=== PATIENT | female | born 1950 | race Caucasian/White ===

== ENCOUNTER → 2018-08-24 11:24 | Outpatient (CLI) | payer MEDICARE, OTHER, SELFPAY ==
--- NOTE | 2018-08-24 11:31 | VDLE_ITS ---
Reason For Study: Swelling RIGHT LEFT CFV is compressible, spontaneous, phasic, CFV is compressible, spontaneous, phasic, competent and demonstrates normal competent, and demonstrates normal augmentation. augmentation. FV is compressible, spontaneous, phasic, FV is compressible, spontaneous, phasic, competent and demonstrates normal competent and demonstrates normal augmentation. augmentation. POP V is compressible, spontaneous, phasic, POP V is compressible, spontaneous, phasic, competent and demonstrates normal competent and demonstrates normal augmentation. augmentation. T/P Trunk is compressible. T/P Trunk is compressible. PTV is compressible. PTV is compressible. RT PerV is compressible. LT PerV is compressible. SFJ is competent. GSV is noncompressible throughout s/p EVLA. GSV is INCOMPETENT throughout for greater SSV is noncompressible throughout s/p EVLA. than 0.5 seconds and measures 0.39 x 0.38 INCOMPETENT nephrology social worker 17 cm above medial cm. malleolus. ASV below knee mid calf is INCOMPETENT for greater than 0.5 seconds and measures 0.19 x 0.19 cm. SSV is INCOMPETENT for greater than 0.5 seconds and measures 0.19 x 0.25 cm. Procedure Exam performed in department. Interpretation Summary Deep veins of the lower extremities are bilaterally patent and compressible segmentally. There is no evidence of deep vein thrombosis on either side. Valvular competence appears intact within the proximal deep venous systems bilaterally. The right greater saphenous vein appears patent and compressible segmentally. The right small saphenous vein is patent and compressible. The right greater saphenous vein, small saphenous vein, and an accessory saphenous vein below the knee are incompetent. The left greater saphenous vein and small saphenous vein are occluded, consistent with a prior endothermal venous ablation procedure. An incompetent nephrology social worker vein is noted in the left calf, located 17 centimeters proximal to the left medial malleolus. Ordering Physician: Demario Bose Referring Physician: Zachary Higuera Performed By: Rita Joe RVT and Student
--- OUTSIDE RECORDS SUMMARY | 2018-10-26 22:37 | XMS RPT_ITS ---
:1950 Author Organization OH[facility] Care Team Providers Name Role Phone SIDDHARTH LOVE Attending Unavailable KIMBERLEY MORGAN (GLUE SPREADING MACHINE OPERATOR) Referring Unavailable SIDDHARTH LOVE Referring Unavailable SIDDHARTH LOVE Referring Unavailable SIDDHARTH LOVE Referring Unavailable SIDDHARTH LOVE Referring Unavailable SIDDHARTH LVOE Referring Unavailable SIDDHARTH LOVE Referring Unavailable SIDDHARTH LOVE Referring Unavailable SIDDHARTH LOVE Attending Unavailable SIDDHARTH LOVE Referring Unavailable CHRISSIE LOVEREY Shelby Referring Unavailable IVAN SIDDHARTH A Referring Unavailable Demario Bose Attending Unavailable Demario Bose Referring Unavailable Siddharth Love Primary Care Unavailable PROBLEMS PROBLEMS DATE TYPE CONDITION / CODE ATTENDING STATUS SOURCE 05/25/2018 Active Encounter for NA Active [facility] screening mammogram [place] for malignant Repository neoplasm of breast / Z12.31(ICD-10) 10/09/2017 Active Encounter for NA Active [facility] screening for [place] malignant neoplasm Repository of colon / Z12.11(ICD-10) 10/09/2017 Active Encounter for NA Active [facility] screening for [place] osteoporosis / Repository Z13.820(ICD-10) 10/09/2017 Active Other primary NA Active [facility] ovarian failure / [place] E28.39(ICD-10) Repository 10/09/2017 Active Disorder of bone, NA Active [facility] unspecified / [place] M89.9(ICD-10) Repository 10/09/2017 Active Disorder of NA Active [facility] cartilage, [place] unspecified / Repository M94.9(ICD-10) 10/09/2017 Active Type 2 diabetes NA Active [facility] mellitus without [place] complications / Repository E11.9(ICD-10) 10/09/2017 Active Essential (primary) NA Active [facility] hypertension / [place] I10(ICD-10) Repository 10/09/2017 Active Mixed hyperlipidemia NA Active [facility] / E78.2(ICD-10) [place] Repository 10/09/2017 Active Unknown / SIDDHARTH LOVE Active [facility] UNK(Unknown) A [place] Repository PROCEDURES PROCEDURES No Procedure Records FoundRESULTS RESULTS VENOUS DUPLEX LOWER Observed: 08/27/2018 Status: F Source: [place] 9:32 AM [facility] [place], [place] REPOSITORY [facility] Cardiovascular Services [address] [place] [address] Venous Duplex US - Sukhdeep Extrem 08/24/18 1133 MR#: [id number] Acct: [id number] Name: CATHIE PERERA Rep #: [id number] : 1950 68 From: Demario Bose MD Attending Dr: Demario Bose MD Status: REG CLI Ordering Dr: Demario Bose MD Date: 08/24/18 Location: [facility] Sex: F C Admitted: Reason For Study: Swelling RIGHT LEFT CFV is compressible, spontaneous, phasic, CFV is compressible, spontaneous, phasic, competent and demonstrates normal competent, and demonstrates normal augmentation. augmentation. FV is compressible, spontaneous, phasic, FV is compressible, spontaneous, phasic, competent and demonstrates normal competent and demonstrates normal augmentation. augmentation. POP V is compressible, spontaneous, phasic, POP V is compressible, spontaneous, phasic, competent and demonstrates normal competent and demonstrates normal augmentation. augmentation. T/P Trunk is compressible. T/P Trunk is compressible. PTV is compressible. PTV is compressible. RT PerV is compressible. LT PerV is compressible. SFJ is competent. GSV is noncompressible throughout s/p EVLA. GSV is INCOMPETENT throughout for greater SSV is noncompressible throughout s/p EVLA. than 0.5 seconds and measures 0.39 x 0.38 INCOMPETENT jet wiper 17 cm above medial cm. malleolus. ASV below knee mid calf is INCOMPETENT for greater than 0.5 seconds and measures 0.19 x 0.19 cm. SSV is INCOMPETENT for greater than 0.5 seconds and measures 0.19 x 0.25 cm. Procedure Exam performed in department. Interpretation Summary Deep veins of the lower extremities are bilaterally patent and compressible segmentally. There is no evidence of deep vein thrombosis on either side. Valvular competence appears intact within the proximal deep venous systems bilaterally. The right greater saphenous vein appears patent and compressible segmentally. The right small saphenous vein is patent and compressible. The right greater saphenous vein, small saphenous vein, and an accessory saphenous vein below the knee are incompetent. The left greater saphenous vein and small saphenous vein are occluded, consistent with a prior endothermal venous ablation procedure. An incompetent jet wiper vein is noted in the left calf, located 17 centimeters proximal to the left medial malleolus. Ordering Physician: Demario Bose Referring Physician: Siddharth Love Performed By: Rita Joe RVT and Student 08/27/18930 Date Demario Bose MD CC: Siddharth Love MD; Demario Bose MD Date Dictated: 08/24/18 1133 Date Transcribed: 08/27/18930 Spooling Machine Operator: Signed CNCO Observed: 05/25/2018 Status: COMPLETED Source: [place] 11:29 AM [facility] REPOSITORY HNO ID: [id number] Author: Mammography Coordinator Service: (none) Author Type: Physician Type: Letter Filed: 05/26/2018 11:32 PM Note Text: May 25, 2018 PID: [id number] Cathie Perera [address] [place] [address] Dear Ms. Perera, We are pleased to inform you that the results of your recent breast imaging exam on 05/25/2018 are normal. Your mammogram demonstrates that you have dense breast tissue, which could hide abnormalities. Dense breast tissue, in and of itself, is a relatively common condition. Therefore, this information is not provided to cause undue concern; rather, it is to raise your awareness and promote discussion with your health care provider regarding the presence of dense breast tissue in addition to other risk factors. Early detection of cancer is very important. We also understand recommendations regarding breast cancer screening are controversial. Please discuss with your primary care provider which strategy is best for you and whether a mammogram is right for you. Your imaging studies and report will be kept on file at [facility] as part of your permanent medical record and are available for your continuing care. Thank you for allowing us to help in meeting your health care needs. Sincerely, Dr. Rashid Interpreting Radiologist [facility] (Normal over 40) [facility] SCREENING Observed: 05/25/2018 Status: F Source: [place] 11:00 AM [facility] REPOSITORY * * *Final Report* * * DATE OF EXAM: May 25 2018 11:00AM [facility] 0581 - [facility] SCREENING / PROCEDURE REASON: Encounter for screening for malignant neoplasm of breast * * * * Physician Interpretation * * * * RESULT: #[id number] - [facility] SCREENING BILATERAL DIGITAL SCREENING MAMMOGRAM WITH CAD: 05/25/2018 HISTORY: Screening Mammogram - patient reports NO breast symptoms /priors available for comparison. RESULT: TECHNIQUE: The study was acquired using full field digital technology and interpreted from soft copy. Current study was also evaluated with a Computer Aided Detection (CAD). Comparison is made to exams dated: 03/03/2017 mammogram - [facility], 01/09/2016 mammogram, 07/06/2015 mammogram - [facility], and 06/05/2015 mammogram - [facility]. The tissue of both breasts is heterogeneously dense. This may lower the sensitivity of mammography. There is a biopsy clip in both breasts. No significant masses, calcifications, or other findings are seen in either breast. There has been no significant interval change. IMPRESSION: NEGATIVE There is no mammographic evidence of malignancy. A 1 year screening mammogram is recommended. John enriquez/rekha:05/25/2018 11:29:12 Rolling Down Machine Operator: Raina EVERETT(Shawn)(Kole), [facility] letter sent: Normal over 40 Mammogram BI-RADS: 1 Negative Multiple national specialty organizations have released breast cancer screening guidelines for women at average risk for developing breast cancer - guidelines that are based on both evidence and opinion, yet differ on when to start and how often to screen for breast cancer. With representation from Breast Imaging, Internal Medicine, Women's Health, Family Medicine, and Medical/Surgical Oncology, the [facility] has carefully reviewed the data and reached the following consensus: 1) All women should engage in shared decision-making with their providers to decide when to start and how often to screen; 2) All women should have the opportunity to start screening mammography at age 40; 3) For women ages 45-55, we recommend annual screening mammograms; 4) For women ages 55 and over, we support both the transition from an annual to a biennial interval if this aligns more with patient's values and preferences, or continuation with annual screening; 5) All women should discuss with their providers when to stop screening mammograms. Spooling Machine Operator: Rekha Transcribe Date/Time: May 25 2018 10:33A Dictated by: JOHN RASHID MD This examination was interpreted and the report reviewed and electronically signed by: JOHN RASHID MD on May 25 2018 11:29AM EST [id number] PROGRESS Observed: 05/25/2018 Status: COMPLETED Source: [place] 10:31 AM [facility] [place] REPOSITORY HNO ID: [id number] Author: Dalia Everett Service: (none) Author Type: (none) Type: Progress Notes Filed: 05/25/2018 10:32 AM Note Text: Radiology Service Progress Note PATIENT NAME: Cathie Perera DATE OF SERVICE: May 25, 2018 TIME: 10:32 AM PATIENT IDENTITY VERIFICATION COMPLETED USING TWO (2) METHODS: Patient confirmed name verbally and Date of . PATIENT GENDER DATA: Female. status: : No status: NO. PATIENT RELEVANT IMPLANT DATA REVIEWED: Not Applicable RADIOLOGY DEPARTMENT: [facility] DATA: Not applicable SIGNED BY: Dalia Everett May 25, 2018 10:32 AM PROGRESS Observed: 05/19/2018 Status: COMPLETED Source: [place] 6:11 PM [facility] [place] REPOSITORY HNO ID: [id number] Author: Siddharth Love Service: (none) Author Type: Physician Type: Progress Notes Filed: 05/19/2018 6:11 PM Note Text: Orders filed. PROGRESS Observed: 05/19/2018 Status: COMPLETED Source: [place] 3:06 PM [facility] REPOSITORY HNO ID: [id number] Author: Kimberley Moore Service: (none) Author Type: Electrical Test Engineer Type: Progress Notes Filed: 05/19/2018 6:11 PM Note Text: Please refills PROGRESS Observed: 05/19/2018 Status: COMPLETED Source: [place] 2:10 PM [facility] REPOSITORY HNO ID: [id number] Author: Kimberley Moore Service: (none) Author Type: Electrical Test Engineer Type: Progress Notes Filed: 05/19/2018 6:11 PM Note Text: Please schedule mammogram. Thanks, Kimberley Moore MA PROGRESS Observed: 05/19/2018 Status: COMPLETED Source: [place] 1:38 PM [facility] REPOSITORY HNO ID: [id number] Author: Kimberley Moore Service: (none) Author Type: Electrical Test Engineer Type: Progress Notes Filed: 05/19/2018 6:11 PM Note Text: Patient phones requesting refills as follows: No refill needed Patient has RX on file. Patient was using old RX number for refill. Pending Prescriptions Disp Refills METFORMIN 500 MG TABLET 360 tablet 1 Sig: Take 2 tablets by mouth twice daily with meals. JESUS MANUEL: No Please review and advise. Kimberley Moore ma PROGRESS Observed: 05/19/2018 Status: COMPLETED Source: [place] 10:59 AM [facility] REPOSITORY HNO ID: [id number] Author: Kimberley Moore Service: (none) Author Type: Electrical Test Engineer Type: Progress Notes Filed: 05/19/2018 6:11 PM Note Text: I have attempted to contact this patient by phone to return their call, schedule an appointment, discuss lab results, etc. Left message to call back. Kimberley Moore MA PROGRESS Observed: 05/19/2018 Status: COMPLETED Source: [place] 10:57 AM [facility] REPOSITORY HNO ID: [id number] Author: Kimberley Moore Service: (none) Author Type: Electrical Test Engineer Type: Progress Notes Filed: 05/19/2018 6:11 PM Note Text: [facility] CARE GAP REGISTRY DOCUMENTATION (OUTSIDE TEAMLET) Provider Action/FYI: Diabetic eye exam mammogram PSR Action/FYI: needs diabetic eye Exam mammogram Patient identified by name and date of . Last BP/Labs: Blood Pressure: Last 3 Encounter BP Readings: Date: BP: 04/20/2018 138/80 12/25/2017 132/74 11/27/2017 132/81[#5 (from [facility])[ Lipids: Cholesterol, Total (mg/dL) Date Value 10/09/2017 149 02/26/2017 117 HDL Cholesterol (mg/dL) Date Value 10/09/2017 70 02/26/2017 55 LDL Cholesterol (mg/dL) Date Value 10/09/2017 59 02/26/2017 47 Triglyceride (mg/dL) Date Value 10/09/2017 100 02/26/2017 76 HGB A1C: Lab Results Component Value Date HBA1C 6.6 04/20/2018 HBA1C 6.7 10/09/2017 HBA1C 7.1 02/26/2017 TSH: No results found for: TSH) ? Patient has the following care gap registry disease diagnosis:DM ? Patient has the following open care gaps:DM - Needs dilated eye exam - HM overdue ? Last office visit: 04/20/2018 ? Future office visit: Kimberley Moore MA CNPTOUTREACH Observed: 05/19/2018 Status: COMPLETED Source: [place] 12:00 AM [facility] REPOSITORY Patient Outreach ([facility]AMPWS) CATHIE PERERA ([id number]) 1950 F Date Time Provider Department 05/19/18 KIMBERLEY MOORE) [facility]WS During your visit today, we recorded the following information about you: Kimberley Moore MA 05/19/2018 6:11 PM Signed [facility] CARE GAP REGISTRY DOCUMENTATION (OUTSIDE TEAMLET) Provider Action/FYI: Diabetic eye exam mammogram PSR Action/FYI: needs diabetic eye Exam mammogram Patient identified by name and date of . Last BP/Labs: Blood Pressure: Last 3 Encounter BP Readings: Date: BP: 04/20/2018 138/80 12/25/2017 132/74 11/27/2017 132/81[#5 (from [facility])[ Lipids: Cholesterol, Total (mg/dL) Date Value 10/09/2017 149 02/26/2017 117 HDL Cholesterol (mg/dL) Date Value 10/09/2017 70 02/26/2017 55 LDL Cholesterol (mg/dL) Date Value 10/09/2017 59 02/26/2017 47 Triglyceride (mg/dL) Date Value 10/09/2017 100 02/26/2017 76 HGB A1C: Lab Results Component Value Date HBA1C 6.6 04/20/2018 HBA1C 6.7 10/09/2017 HBA1C 7.1 02/26/2017 TSH: No results found for: TSH) ? Patient has the following care gap registry disease diagnosis:DM ? Patient has the following open care gaps:DM - Needs dilated eye exam - HM overdue ? Last office visit: 04/20/2018 ? Future office visit: CARIN Reynolds MA 05/19/2018 6:11 PM Signed I have attempted to contact this patient by phone to return their call, schedule an appointment, discuss lab results, etc. Left message to call back. CARIN Reynolds MA 05/19/2018 6:11 PM Signed Patient phones requesting refills as follows: No refill needed Patient has RX on file. Patient was using old RX number for refill. Pending Prescriptions Disp Refills METFORMIN 500 MG TABLET 360 tablet 1 Sig: Take 2 tablets by mouth twice daily with meals. JESUS MANUEL: No Please review and advise. carin Reynolds MA 05/19/2018 6:11 PM Signed Please schedule mammogram. Thanks, CARIN Reynolds MA 05/19/2018 6:11 PM Signed Please refills Siddharth Love MD 05/19/2018 6:11 PM Signed Orders filed. Allergies As of Date: 05/19/2018 Noted Allergy Reaction PENICILLINS 10/27/2007 2 - Rash KIWI 06/28/2014 7 - Swelling LISINOPRIL 02/15/2013 3 - Cough SULFA (SULFONAMIDE ANTIBIOTICS) 10/27/2007 2 - Rash Date Reviewed: 04/20/2018 Reviewed by: Siddharth Love - Fully Assessed Reason for Visit: PHMA/Care Gap Outreach [3604] Primary Visit Diagnosis:Encounter for screening for malignant neoplasm of breast [Z12.31] Order(s):[facility] SCREENING [[id number]] Order #: [id number] FUTURE metFORMIN (GLUCOPHAGE) 500 mg tabletTake 2 tablets by mouth twice daily with meals.Disp: 360 tabletRfl: 1 Prescriptions as of 05/19/2018 Sig: LOSARTAN 100 MG TABLET TAKE 1 TABLET BY MOUTH ONCE D* HYDROCHLOROTHIAZIDE 12.5 MG C* TAKE 1 CAPSULE BY MOUTH ONCE * METFORMIN 500 MG TABLET Take 2 tablets by mouth twice* ATORVASTATIN 20 MG TABLET TAKE 1 TABLET BY MOUTH ONCE D* CALCIUM 600 + D ORAL Take 1 tablet by mouth twice * ASPIRIN 81 MG TABLET,DELAYED * Take 1 tablet by mouth once d* AZO BLADDER CONTROL ORAL Take by mouth three times da* BLOOD SUGAR DIAGNOSTIC STRIPS Test blood sugar(s) 1 times d* LANCETS 28 GAUGE Test blood sugar(s) 1 times d* [id number] C-M* Take 1 capsule by mouth three* LUTEIN 20 MG CAPSULE Take 1 capsule by mouth. MULTIVITAMIN TABLET Take 1 tablet by mouth once d* CRANBERRY FRUIT CONCENTRATE 4* Take by mouth. * VITAMIN D3 1,000 UNIT CHEWABL* * COMPOUNDED PRESCRIPTION Sustain eye drops when wearin* * COMPOUNDED PRESCRIPTION maxi vision 2 times daily More... More... Problem List As Of Date 05/19/2018 Noted Resolved Hypertension goal BP (blood pressure) < 140/90 * Priority: A More... Routine general medical examination at a health*INVALID FOR*12/18/2011 More... BMI 28.0-28.9,adult [Z68.28] INVALID FOR* Priority: B More... Mixed hyperlipidemia [E78.2] INVALID FOR* Priority: A More... Abnormal mammogram, unspecified [R92.8] INVALID FOR* Priority: C More... Osteopenia of multiple sites [M85.89] INVALID FOR* Priority: M More... 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 Anxiety and depression [F41.9, F32.9] INVALID FOR* Priority: A Venous stasis dermatitis of both lower extremit*INVALID FOR* Priority: B Well adult exam [Z00.00] INVALID FOR* Priority: E More... Type 2 diabetes mellitus without complication, *INVALID FOR* Priority: A More... 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 Prescriptions ordered this encounter Disp Refills Start End METFORMIN 500 MG TABLET 360 * 1 05/19/2018 Route: ORAL Sig: Take 2 tablets by mouth twice daily with meals. Medications Discontinued During This Encounter metFORMIN (GLUCOPHAGE) 500 mg tablet 360 * 1 05/04/2018 05/19/2018 Route: ORAL Sig: Take 2 tablets by mouth twice daily with meals. Disc: Reason for discontinue is not on file. Encounter Status:Closed by SIDDHARTH LOVE on 05/19/18 HEMOGLOBIN A1C Collected: 04/20/2018 Status: F Source: [place] 2:20 PM [facility] REPOSITORY TYPE CODE TESTS RESULT OUT OF REFERENCE UNITS RANGE LAB HGBA1C 4.3-5.6 % High Hemoglobin A1c 6.6 LAB HBA0 mg/dL Est. Average Glucose 143 Result Comment: eAG: (Estimated average glucose) is a calculated value from HgbA1c and is textile designs sales representative of the average blood glucose level in the last 2-3 month period. Performed By: #### HBA1C #### [facility] [address] [place], [place] [address] PROGRESS Observed: 04/20/2018 Status: COMPLETED Source: [place] 1:55 PM [facility] [place] REPOSITORY HNO ID: [id number] Author: Siddharth Love Service: (none) Author Type: Physician Type: Progress Notes Filed: 04/20/2018 7:52 PM Note Text: I have confirmed and edited as necessary, the PFSH and ROS obtained by others. Examined patient and confirmed daly findings on history and examination and ROS as noted by Martin Singh MS 3 above. Summary of my findings and impressions are as follows: Patient with Hx of DM type 2, HTN, Hyperlipidemia, major depression. Had weaned herself of the prozac about a month ago and has been doing well off of it and would like to continue staying off at this time. Was having some right hip pain [place] with [place] on. Went and saw chiropractor once and symptoms have almost completely resolved. With pain down to a 3 at it's max and 0 most times. No longer getting pain with laying on it or rolling over in bed. HPI, ROS and PE as per MS note and no additions other than what has been documented above. Component Latest Ref Rng AND Units 10/09/2017 Protein, Total 6.3 - 8.0 g/dL 7.5 Albumin 3.9 - 4.9 g/dL 4.2 Calcium 8.5 - 10.2 mg/dL 10.2 Bilirubin, Total 0.2 - 1.3 mg/dL 1.5 (H) Alkaline Phosphatase 32 - 117 U/L 93 AST 13 - 35 U/L 25 Glucose 74 - 99 mg/dL 123 (H) BUN 7 - 21 mg/dL 15 Creatinine 0.58 - 0.96 mg/dL 0.72 Sodium 136 - 144 mmol/L 142 Potassium 3.7 - 5.1 mmol/L 4.3 Chloride 97 - 105 mmol/L 102 CO2 22 - 30 mmol/L 21 (L) Anion Gap 9 - 18 mmol/L 19 (H) ALT 7 - 38 U/L 20 eGFR- >60 eGFR-All Other Races . >60 Cholesterol, Total <200 mg/dL 149 Triglyceride <150 mg/dL 100 HDL Cholesterol >39 mg/dL 70 LDL Cholesterol <100 mg/dL 59 Non HDL Cholesterol <130 mg/dL 79 Fasting Time hrs 16 VLDL Cholesterol <30 mg/dL 20 TC:HDL Ratio <5.10 2.13 LDL:HDL Ratio <2.54 0.84 Hemoglobin A1C 4.3 - 5.6 % 6.7 (H) Estimated Average Glucose mg/dL 146 A/P ASSESSMENT/PLAN: 1. Mixed hyperlipidemia - ICD9: 272.2, ICD10: E78.2 (primary diagnosis) - good control - Continue current medication. - Encouraged following a low fat, low cholesterol diet. - Discussed the benefits of regular aerobic exercise and weight loss. - Encouraged following a low carbohydrate, healthy oil intake diet. - cont baby ASA. 2. Type 2 diabetes mellitus without complication, without long-term current use of insulin (HCC) - ICD9: 250.00, ICD10: E11.9 Controlled. - Continue current medications - Check HgA1C - Daily Asprin therapy recommended - BP goal of <130/80 - LDL goal of <100 - HGB A1C 3. Obstructive sleep apnea syndrome - ICD9: 327.23, ICD10: G47.33 - Patient continues to benefit from CPAP at current settings. No changes. 4. Hypertension goal BP (blood pressure) < 140/90 - ICD9: 401.9, ICD10: I10 - good control - Continue current medication(s) - Recommended regular aerobic exercise. - Recommend home blood pressure monitoring, to bring results in on next visit - Goal of BP <130/80 5. Anxiety and depression - ICD9: 300.00, 311, ICD10: F41.9, F32.9 - Has been doing well off the Prozac and will continue her off of it and monitor 6. Venous insufficiency - ICD9: 459.81, ICD10: I87.2 - cont use of Support socks which she does benefit from. 7. BMI 28.0-28.9,adult - ICD9: V85.24, ICD10: Z68.28 - Cont to work on diet and exercise. F/u in 6 months extensive/medicare wellness. Check CMP, FLP, UA, urine albumin and A1c prior. Siddharth Love MD PROGRESS Observed: 04/20/2018 Status: COMPLETED Source: [place] 1:20 PM [facility] REPOSITORY HNO ID: [id number] Author: Martin Singh MS Service: (none) Author Type: (none) Type: Progress Notes Filed: 04/20/2018 7:52 PM Note Text: Chief Complaint Patient presents with: F/U 6 months HPI Cathie Perera is a 67 year old female who presents here today for 6 month F/U. Was experiencing some R hip pain last week. The pain was worse after poor shoe support and walking at the fair. She presented to Chiropractor for treatment, with almost complete resolution of her pain. Non radiating pain. No OTC tx. D/C'd prozac - she was not able to feel emotions after loss of her friend and therapy dog. Stopped taking it ~1 month ago. She reports that she feels more like herself. She has felt stable since being off of it. She is sleeping well. She continues to use her CPAP, tolerates the machine well. LLE edema continues to be stable. Improves overnight and she will elevate throughout the day as she can. Exercise - twice weekly aerobic classes. Regular walks with her dogs, mows her own lawn, vacuums regularly. Diet - One full meal a day, tends to go out to a restaurant for her meal. Drinks milk and likes fruit. Past medical history, appointments, medications, allergies reviewed. Previous Medical History PAST MEDICAL HISTORY Diagnosis Date - Abnormal mammogram, unspecified 01/12/2008 [place] 01-09: rec stereotactic biopsy for both breasts given the abnormal findings - Anxiety and depression 10/09/2017 - BMI 28.0-28.9,adult 11/24/2007 TSH 5 in 9-98 4 pounds of wt loss as of 12-09 appt - Cystocele, midline 12/25/2009 - Depression Seasonal Affective Disorder - Depressive disorder, not elsewhere classified Seasonal Affective Disorder - Disorder of bone and cartilage 08/22/2008 BMD 04-04: LS spine + 1.1, femur -0.01, normal. Distal radius fracture on L by X ray 08-07 - Diverticulosis of colon (without mention of hemorrhage) - DM type 2 (diabetes mellitus, type 2) ([facility]) 12/24/2013 - Essential hypertension, benign - Hypertension goal BP (blood pressure) < 140/90 ECG 12-06: NSR, NL axis and intervals Creat 0.9 in 12-09 Tolerating HCTZ as of 01-09 despite Sulfa allergy - Mixed hyperlipidemia 12/24/2007 LDL 148, HDL 49, TG 103 in 12-09: no meds for wt loss - Rectocele 12/25/2009 - Sleep apnea 12-05: effic 93%, AHI 20, low sat 88% (CPAP trial showed 7 cm as optimal pressure) Septoplasty and nasal polyp removed 02-[address] 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 Vaca - [facility],PERC,DURING BREAST BX 01/29/08 BILATERAL - REPAIR OF NASAL SEPTUM 2001 for Sleep Apnea - SIGMOIDOSCOPY FLEX; DX 07/07/01 - TOTAL ABDOM HYSTERECTOMY 1990 Endometriosis Family History FAMILY HISTORY Problem Relation Age of Onset - Thyroid Mother - Cancer Father DM, Prostate Cancer - Coronary Artery Disease Mother - Lipids Mother - Diabetes Father - Coronary Artery Disease Father - Hypertension Father - other (renal insufficiency [Other]) Father Patient Allergies ALLERGIES Allergen Reactions - Kiwi Swelling - Lisinopril Cough - Penicillins Rash - Sulfa (Sulfonamide * Rash Current Medications Current Outpatient Prescriptions on File Prior to Visit: atorvastatin (LIPITOR) 20 mg tablet TAKE 1 TABLET BY MOUTH ONCE DAILY. calcium carbonate/vitamin D3 (CALCIUM 600 + D ORAL) Take 1 tablet by mouth twice daily. Hydrochlorothiazide 12.5 mg capsule Take 1 capsule by mouth once daily. losartan (COZAAR) 100 mg tablet Take 1 tablet by mouth once daily. aspirin, enteric coated (ADULT ASPIRIN REGIMEN) 81 mg EC tablet Take 1 tablet by mouth once daily. metFORMIN (GLUCOPHAGE) 500 mg tablet Take 2 tablets by mouth twice daily with meals. PUMPKIN SEED EXTRACT/SOY GERM (AZO BLADDER CONTROL ORAL) Take by mouth three times daily. blood sugar diagnostic (FREESTYLE LITE STRIPS) test strip Test blood sugar(s) 1 times daily. Dx: E11.9. Insulin: No lancets (FREESTYLE LANCETS) 28 gauge misc Test blood sugar(s) 1 times daily. Dx: E11.9. Insulin: No Griteakbgle-Edjcwtpnr-Ruo C-Mn (GLUCOSAMINE CHONDROITIN MAXSTR) 500-400 mg cap Take 1 capsule by mouth three times daily. Lutein 20 mg cap Take 1 capsule by mouth. multivitamin tablet Take 1 tablet by mouth once daily. Cranberry Extract (CRANBERRY) 450 mg tab Take by mouth. cholecalciferol(VITAMIN D-3 1,000 UNIT CHEWABLE TAB) COMPOUNDED PRESCRIPTION Sustain eye drops when wearing contacts COMPOUNDED PRESCRIPTION maxi vision 2 times daily FLUoxetine HCl (PROZAC) 40 mg capsule TAKE 1 CAPSULE BY MOUTH ONCE DAILY. No current facility-administered medications on file prior to visit. 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 in [place] for 30 yr Review of Symptoms REVIEW OF SYSTEMS GENERAL: No weight loss, malaise or fevers HEENT: Negative for frequent or significant headaches, No changes in hearing or vision, no nose bleeds or other nasal problems NECK: Negative for lumps, goiter, pain and significant neck swelling RESPIRATORY: Negative for hemoptysis, wheezing, COPD, dyspnea or shortness of breath CARDIOVASCULAR: Negative for chest pain, leg swelling, hypertension, CHF or palpitations GI: No nausea, vomiting, or diarrhea : No history of dysuria, frequency or incontinence SKIN: Negative for lesions, rash, and itching PSYCH: Negative for sleep disturbance, mood disorder and recent psychosocial stressors HEMATOLOGY/LYMPHOLOGY: Negative for prolonged bleeding, bruising easily or swollen nodes ENDOCRINE: Negative for cold or heat intolerance, polyuria, polydipsia and goiter NEURO: No history of headaches, syncope, paralysis, seizures or tremors EXAM: BP 138/80 Pulse 68 Temp 37.6 ?C (99.7 ?F) (Tympanic) Resp 16 Wt 84.4 kg (186 lb) BMI 28.70 kg/m? General Appearance: Well appearing, alert, in no acute distress, well-hydrated, well nourished.. Skin: Skin color, texture, turgor normal, no suspicious rashes or lesions. Head: Normocephalic, no masses, lesions, tenderness or abnormalities. Eyes: Anicteric sclera. Pupils are equally round and reactive to light. Extraocular movements are intact. . Ears: External ears normal, canals clear. Nose/Sinuses: Nares normal, septum midline, mucosa normal, no drainage or sinus tenderness. Oropharynx: Lips, mucosa, and tongue normal, teeth and gums normal, oropharynx normal. Neck: Supple, no adenopathy; thyroid symmetric, normal size, no bruits. Lungs: Lungs clear to auscultation. No wheezing, rhonchi, rales. Heart: RRR without murmur, gallop, or rubs. No ectopy. Abdomen: Normal abdominal exam, Abdomen soft, non-tender. Bowel sounds normal. No masses, organomegaly. Extremities: Some tenderness to palpation over the greater trochanter of the Right leg. LLE with some edema, compression stocking in place. No skin discoloration, clubbing or cyanosis. Good capillary refill. . Musculoskeletal: No pain with flexion, extension of the R hip. Peripheral Pulses: Normal radial pulses bilaterally Neurologic: Gait normal. Reflexes normal and symmetric. Sensation to light touch intact. Linseed Cake Trimmer 2-12 intact Health Maintenance List BP CONTROLLED (<130/80) due on 1968 MAMMOGRAM due on 03/03/2018 DILATED RETINAL EXAM due on 03/18/2018 HBA1C due on 04/11/2018 INFLUENZA(1) due on 04/04/2018 STATIN MED ADHERENCE due on 05/04/2018 DIABETES MED ADHERENCE due on 05/04/2018 URINE ALBUMIN:CREATININE RATIO due on 10/09/2018 LDL CHOLESTEROL due on 10/09/2018 DIABETIC FOOT EXAM due on 10/09/2018 ANNUAL PCP TEAM CHRONIC DISEASE VISIT due on 10/09/2018 PNEUMOVAX AGE 65 AND OVER WITH 5YR LOOKBACK(1) due on 04/27/2019 DTAP,TDAP,TD(2 - Td) due on 11/15/2019 COLORECTAL CANCER SCREENING,SEE MODIFIER due on 12/11/2021 BONE DENSITY Completed ADULT PREVNAR-13 Completed HEPATITIS C SCREENING Completed Data reviewed A/P ASSESSMENT/PLAN: 1. Mixed hyperlipidemia - ICD9: 272.2, ICD10: E78.2 (primary diagnosis) - good control - Continue current medication. - Encouraged following a low fat, low cholesterol diet. - Discussed the benefits of regular aerobic exercise and weight loss. Check in 6 months - COMP METABOLIC PANEL - URINALYSIS WITH MICROSCOPIC - LIPID PANEL, NONFASTING 2. Type 2 diabetes mellitus without complication, without long-term current use of insulin (HCC) - ICD9: 250.00, ICD10: E11.9 Controlled. - Continue current medications - Encouraged regular aerobic exercise and weight loss - Daily Asprin therapy recommended - BP goal of <130/80 - LDL goal of <100 Check - HGB A1C Check in 6 months - ALBUMIN/CREAT RATIO RND UR - COMP METABOLIC PANEL - HGB A1C - URINALYSIS WITH MICROSCOPIC - LIPID PANEL, NONFASTING 3. Obstructive sleep apnea syndrome - ICD9: 327.23, ICD10: G47.33 Continue CPAP, stable 4. Hypertension goal BP (blood pressure) < 140/90 - ICD9: 401.9, ICD10: I10 - good control - Continue current medication(s) - Recommended regular aerobic exercise. - Recommend home blood pressure monitoring, to bring results in on next visit - Goal of BP <130/80 Check in 6 months - COMP METABOLIC PANEL - URINALYSIS WITH MICROSCOPIC - LIPID PANEL, NONFASTING 5. Anxiety and depression - ICD9: 300.00, 311, ICD10: F41.9, F32.9 Doing well off of the Prozac, continue 6. Venous insufficiency - ICD9: 459.81, ICD10: I87.2 Continue to wear compression stocking, stable 7. BMI 28.0-28.9,adult - ICD9: V85.24, ICD10: Z68.28 Encouraged regular exercise and healthy, weight losing diet Martin Singh MS CNOV Observed: 04/20/2018 Status: COMPLETED Source: [place] 1:20 PM [facility] REPOSITORY Office Visit ([facility] CATHIE PERERA ([id number]) 1950 F Date Time Provider Department 04/20/18 1:20 PM SIDDHARTH LOVE During your visit today, we recorded the following information about you: Temperature Pulse Respiration Blood pressure 99.7 degrees 68/minute 16/minute 138/80 Weight 84.4 kg Martin Singh MS 04/20/2018 7:52 PM Signed Chief Complaint Patient presents with: F/U 6 months HPI Cathie Perera is a 67 year old female who presents here today for 6 month F/U. Was experiencing some R hip pain last week. The pain was worse after poor shoe support and walking at the [place]. She presented to Chiropractor for treatment, with almost complete resolution of her pain. Non radiating pain. No OTC tx. D/C'd prozac - she was not able to feel emotions after loss of her friend and therapy dog. Stopped taking it ~1 month ago. She reports that she feels more like herself. She has felt stable since being off of it. She is sleeping well. She continues to use her CPAP, tolerates the machine well. LLE edema continues to be stable. Improves overnight and she will elevate throughout the day as she can. Exercise - twice weekly aerobic classes. Regular walks with her dogs, mows her own lawn, vacuums regularly. Diet - One full meal a day, tends to go out to a restaurant for her meal. Drinks milk and likes fruit. Past medical history, appointments, medications, allergies reviewed. Previous Medical History PAST MEDICAL HISTORY Diagnosis Date - Abnormal mammogram, unspecified 01/12/2008 [place] 01-09: rec stereotactic biopsy for both breasts given the abnormal findings - Anxiety and depression 10/09/2017 - BMI 28.0-28.9,adult 11/24/2007 TSH 5 in 9-98 4 pounds of wt loss as of 12-09 appt - Cystocele, midline 12/25/2009 - Depression Seasonal Affective Disorder - Depressive disorder, not elsewhere classified Seasonal Affective Disorder - Disorder of bone and cartilage 08/22/2008 BMD 04-04: LS spine + 1.1, femur -0.01, normal. Distal radius fracture on L by X ray 08-07 - Diverticulosis of colon (without mention of hemorrhage) - DM type 2 (diabetes mellitus, type 2) ([facility]) 12/24/2013 - Essential hypertension, benign - Hypertension goal BP (blood pressure) < 140/90 ECG 12-06: NSR, NL axis and intervals Creat 0.9 in 12-09 Tolerating HCTZ as of 01-09 despite Sulfa allergy - Mixed hyperlipidemia 12/24/2007 LDL 148, HDL 49, TG 103 in 12-09: no meds for wt loss - Rectocele 12/25/2009 - Sleep apnea 12-05: effic 93%, AHI 20, low sat 88% (CPAP trial showed 7 cm as optimal pressure) Septoplasty and nasal polyp removed 02-[address] 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 Vaca - [facility],PERC,DURING BREAST BX 01/29/08 BILATERAL - REPAIR OF NASAL SEPTUM 2001 for Sleep Apnea - SIGMOIDOSCOPY FLEX; DX 07/07/01 - TOTAL ABDOM HYSTERECTOMY 1990 Endometriosis Family History FAMILY HISTORY Problem Relation Age of Onset - Thyroid Mother - Cancer Father DM, Prostate Cancer - Coronary Artery Disease Mother - Lipids Mother - Diabetes Father - Coronary Artery Disease Father - Hypertension Father - other (renal insufficiency [Other]) Father Patient Allergies ALLERGIES Allergen Reactions - Kiwi Swelling - Lisinopril Cough - Penicillins Rash - Sulfa (Sulfonamide * Rash Current Medications Current Outpatient Prescriptions on File Prior to Visit: atorvastatin (LIPITOR) 20 mg tablet TAKE 1 TABLET BY MOUTH ONCE DAILY. calcium carbonate/vitamin D3 (CALCIUM 600 + D ORAL) Take 1 tablet by mouth twice daily. Hydrochlorothiazide 12.5 mg capsule Take 1 capsule by mouth once daily. losartan (COZAAR) 100 mg tablet Take 1 tablet by mouth once daily. aspirin, enteric coated (ADULT ASPIRIN REGIMEN) 81 mg EC tablet Take 1 tablet by mouth once daily. metFORMIN (GLUCOPHAGE) 500 mg tablet Take 2 tablets by mouth twice daily with meals. PUMPKIN SEED EXTRACT/SOY GERM (AZO BLADDER CONTROL ORAL) Take by mouth three times daily. blood sugar diagnostic (FREESTYLE LITE STRIPS) test strip Test blood sugar(s) 1 times daily. Dx: E11.9. Insulin: No lancets (FREESTYLE LANCETS) 28 gauge misc Test blood sugar(s) 1 times daily. Dx: E11.9. Insulin: No Kxzudlzkqhf-Ldkoiskam-Fsn C-Mn (GLUCOSAMINE CHONDROITIN MAXSTR) 500-400 mg cap Take 1 capsule by mouth three times daily. Lutein 20 mg cap Take 1 capsule by mouth. multivitamin tablet Take 1 tablet by mouth once daily. Cranberry Extract (CRANBERRY) 450 mg tab Take by mouth. cholecalciferol(VITAMIN D-3 1,000 UNIT CHEWABLE TAB) COMPOUNDED PRESCRIPTION Sustain eye drops when wearing contacts COMPOUNDED PRESCRIPTION maxi vision 2 times daily FLUoxetine HCl (PROZAC) 40 mg capsule TAKE 1 CAPSULE BY MOUTH ONCE DAILY. No current facility-administered medications on file prior to visit. 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 in [place] for 30 yr Review of Symptoms REVIEW OF SYSTEMS GENERAL: No weight loss, malaise or fevers HEENT: Negative for frequent or significant headaches, No changes in hearing or vision, no nose bleeds or other nasal problems NECK: Negative for lumps, goiter, pain and significant neck swelling RESPIRATORY: Negative for hemoptysis, wheezing, COPD, dyspnea or shortness of breath CARDIOVASCULAR: Negative for chest pain, leg swelling, hypertension, CHF or palpitations GI: No nausea, vomiting, or diarrhea : No history of dysuria, frequency or incontinence SKIN: Negative for lesions, rash, and itching PSYCH: Negative for sleep disturbance, mood disorder and recent psychosocial stressors HEMATOLOGY/LYMPHOLOGY: Negative for prolonged bleeding, bruising easily or swollen nodes ENDOCRINE: Negative for cold or heat intolerance, polyuria, polydipsia and goiter NEURO: No history of headaches, syncope, paralysis, seizures or tremors EXAM: BP 138/80 Pulse 68 Temp 37.6 ?C (99.7 ?F) (Tympanic) Resp 16 Wt 84.4 kg (186 lb) BMI 28.70 kg/m? General Appearance: Well appearing, alert, in no acute distress, well-hydrated, well nourished.. Skin: Skin color, texture, turgor normal, no suspicious rashes or lesions. Head: Normocephalic, no masses, lesions, tenderness or abnormalities. Eyes: Anicteric sclera. Pupils are equally round and reactive to light. Extraocular movements are intact. . Ears: External ears normal, canals clear. Nose/Sinuses: Nares normal, septum midline, mucosa normal, no drainage or sinus tenderness. Oropharynx: Lips, mucosa, and tongue normal, teeth and gums normal, oropharynx normal. Neck: Supple, no adenopathy; thyroid symmetric, normal size, no bruits. Lungs: Lungs clear to auscultation. No wheezing, rhonchi, rales. Heart: RRR without murmur, gallop, or rubs. No ectopy. Abdomen: Normal abdominal exam, Abdomen soft, non-tender. Bowel sounds normal. No masses, organomegaly. Extremities: Some tenderness to palpation over the greater trochanter of the Right leg. LLE with some edema, compression stocking in place. No skin discoloration, clubbing or cyanosis. Good capillary refill. . Musculoskeletal: No pain with flexion, extension of the R hip. Peripheral Pulses: Normal radial pulses bilaterally Neurologic: Gait normal. Reflexes normal and symmetric. Sensation to light touch intact. Linseed Cake Trimmer 2-12 intact Health Maintenance List BP CONTROLLED (<130/80) due on 1968 MAMMOGRAM due on 03/03/2018 DILATED RETINAL EXAM due on 03/18/2018 HBA1C due on 04/11/2018 INFLUENZA(1) due on 04/04/2018 STATIN MED ADHERENCE due on 05/04/2018 DIABETES MED ADHERENCE due on 05/04/2018 URINE ALBUMIN:CREATININE RATIO due on 10/09/2018 LDL CHOLESTEROL due on 10/09/2018 DIABETIC FOOT EXAM due on 10/09/2018 ANNUAL PCP TEAM CHRONIC DISEASE VISIT due on 10/09/2018 PNEUMOVAX AGE 65 AND OVER WITH 5YR LOOKBACK(1) due on 04/27/2019 DTAP,TDAP,TD(2 - Td) due on 11/15/2019 COLORECTAL CANCER SCREENING,SEE MODIFIER due on 12/11/2021 BONE DENSITY Completed ADULT PREVNAR-13 Completed HEPATITIS C SCREENING Completed Data reviewed A/P ASSESSMENT/PLAN: 1. Mixed hyperlipidemia - ICD9: 272.2, ICD10: E78.2 (primary diagnosis) - good control - Continue current medication. - Encouraged following a low fat, low cholesterol diet. - Discussed the benefits of regular aerobic exercise and weight loss. Check in 6 months - COMP METABOLIC PANEL - URINALYSIS WITH MICROSCOPIC - LIPID PANEL, NONFASTING 2. Type 2 diabetes mellitus without complication, without long-term current use of insulin (HCC) - ICD9: 250.00, ICD10: E11.9 Controlled. - Continue current medications - Encouraged regular aerobic exercise and weight loss - Daily Asprin therapy recommended - BP goal of <130/80 - LDL goal of <100 Check - HGB A1C Check in 6 months - ALBUMIN/CREAT RATIO RND UR - COMP METABOLIC PANEL - HGB A1C - URINALYSIS WITH MICROSCOPIC - LIPID PANEL, NONFASTING 3. Obstructive sleep apnea syndrome - ICD9: 327.23, ICD10: G47.33 Continue CPAP, stable 4. Hypertension goal BP (blood pressure) < 140/90 - ICD9: 401.9, ICD10: I10 - good control - Continue current medication(s) - Recommended regular aerobic exercise. - Recommend home blood pressure monitoring, to bring results in on next visit - Goal of BP <130/80 Check in 6 months - COMP METABOLIC PANEL - URINALYSIS WITH MICROSCOPIC - LIPID PANEL, NONFASTING 5. Anxiety and depression - ICD9: 300.00, 311, ICD10: F41.9, F32.9 Doing well off of the Prozac, continue 6. Venous insufficiency - ICD9: 459.81, ICD10: I87.2 Continue to wear compression stocking, stable 7. BMI 28.0-28.9,adult - ICD9: V85.24, ICD10: Z68.28 Encouraged regular exercise and healthy, weight losing diet Martin Love MD 04/20/2018 7:52 PM Signed I have confirmed and edited as necessary, the PFSH and ROS obtained by others. Examined patient and confirmed daly findings on history and examination and ROS as noted by Martin Singh MS 3 above. Summary of my findings and impressions are as follows: Patient with Hx of DM type 2, HTN, Hyperlipidemia, major depression. Had weaned herself of the prozac about a month ago and has been doing well off of it and would like to continue staying off at this time. Was having some right hip pain after walking at the fair with boots on. Went and saw chiropractor once and symptoms have almost completely resolved. With pain down to a 3 at it's max and 0 most times. No longer getting pain with laying on it or rolling over in bed. HPI, ROS and PE as per MS note and no additions other than what has been documented above. Component Latest Ref Rng AND Units 10/09/2017 Protein, Total 6.3 - 8.0 g/dL 7.5 Albumin 3.9 - 4.9 g/dL 4.2 Calcium 8.5 - 10.2 mg/dL 10.2 Bilirubin, Total 0.2 - 1.3 mg/dL 1.5 (H) Alkaline Phosphatase 32 - 117 U/L 93 AST 13 - 35 U/L 25 Glucose 74 - 99 mg/dL 123 (H) BUN 7 - 21 mg/dL 15 Creatinine 0.58 - 0.96 mg/dL 0.72 Sodium 136 - 144 mmol/L 142 Potassium 3.7 - 5.1 mmol/L 4.3 Chloride 97 - 105 mmol/L 102 CO2 22 - 30 mmol/L 21 (L) Anion Gap 9 - 18 mmol/L 19 (H) ALT 7 - 38 U/L 20 eGFR- >60 eGFR-All Other Races . >60 Cholesterol, Total <200 mg/dL 149 Triglyceride <150 mg/dL 100 HDL Cholesterol >39 mg/dL 70 LDL Cholesterol <100 mg/dL 59 Non HDL Cholesterol <130 mg/dL 79 Fasting Time hrs 16 VLDL Cholesterol <30 mg/dL 20 TC:HDL Ratio <5.10 2.13 LDL:HDL Ratio <2.54 0.84 Hemoglobin A1C 4.3 - 5.6 % 6.7 (H) Estimated Average Glucose mg/dL 146 A/P ASSESSMENT/PLAN: 1. Mixed hyperlipidemia - ICD9: 272.2, ICD10: E78.2 (primary diagnosis) - good control - Continue current medication. - Encouraged following a low fat, low cholesterol diet. - Discussed the benefits of regular aerobic exercise and weight loss. - Encouraged following a low carbohydrate, healthy oil intake diet. - cont baby ASA. 2. Type 2 diabetes mellitus without complication, without long-term current use of insulin (HCC) - ICD9: 250.00, ICD10: E11.9 Controlled. - Continue current medications - Check HgA1C - Daily Asprin therapy recommended - BP goal of <130/80 - LDL goal of <100 - HGB A1C 3. Obstructive sleep apnea syndrome - ICD9: 327.23, ICD10: G47.33 - Patient continues to benefit from CPAP at current settings. No changes. 4. Hypertension goal BP (blood pressure) < 140/90 - ICD9: 401.9, ICD10: I10 - good control - Continue current medication(s) - Recommended regular aerobic exercise. - Recommend home blood pressure monitoring, to bring results in on next visit - Goal of BP <130/80 5. Anxiety and depression - ICD9: 300.00, 311, ICD10: F41.9, F32.9 - Has been doing well off the Prozac and will continue her off of it and monitor 6. Venous insufficiency - ICD9: 459.81, ICD10: I87.2 - cont use of Support socks which she does benefit from. 7. BMI 28.0-28.9,adult - ICD9: V85.24, ICD10: Z68.28 - Cont to work on diet and exercise. F/u in 6 months extensive/medicare wellness. Check CMP, FLP, UA, urine albumin and A1c prior. MD Siddharth Sharma MD 04/20/2018 2:06 PM Signed Please get fasting labs on or after 10/09/2018 prior to next visit. Referring Provider: SIDDHARTH LOVE [[id number]] Allergies As of Date: 04/20/2018 Noted Allergy Reaction PENICILLINS 10/27/2007 2 - Rash KIWI 06/28/2014 7 - Swelling LISINOPRIL 02/15/2013 3 - Cough SULFA (SULFONAMIDE ANTIBIOTICS) 10/27/2007 2 - Rash Date Reviewed: 04/20/2018 Reviewed by: Siddharth Love - Fully Assessed Reason for Visit: F/U 6 months [1177] Primary Visit Diagnosis:Mixed hyperlipidemia [E78.2] Other Visit Diagnoses:Type 2 diabetes mellitus without complication, without long-term current use of insulin (HCC) [E11.9] Obstructive sleep apnea syndrome [G47.33] Hypertension goal BP (blood pressure) < 140/90 [I10] Anxiety and depression [F41.9, F32.9] Venous insufficiency [I87.2] BMI 28.0-28.9,adult [Z68.28] Order(s):HGB A1C [[id number]] Order #: [id number] FUTURE ALBUMIN/CREAT RATIO RND UR [SQUACR] Order #: [id number] FUTURE COMP METABOLIC PANEL [SQCMP] Order #: [id number] FUTURE HGB A1C [RHROB6F] Order #: [id number] FUTURE URINALYSIS WITH MICROSCOPIC [SQUAWMIC] Order #: [id number] FUTURE LIPID PANEL, NONFASTING [SQLIPNF] Order #: [id number] FUTURE Prescriptions as of 04/20/2018 Sig: ATORVASTATIN 20 MG TABLET TAKE 1 TABLET BY MOUTH ONCE D* CALCIUM 600 + D ORAL Take 1 tablet by mouth twice * HYDROCHLOROTHIAZIDE 12.5 MG C* Take 1 capsule by mouth once * LOSARTAN 100 MG TABLET Take 1 tablet by mouth once d* ASPIRIN 81 MG TABLET,DELAYED * Take 1 tablet by mouth once d* METFORMIN 500 MG TABLET Take 2 tablets by mouth twice* AZO BLADDER CONTROL ORAL Take by mouth three times da* BLOOD SUGAR DIAGNOSTIC STRIPS Test blood sugar(s) 1 times d* LANCETS 28 GAUGE Test blood sugar(s) 1 times d* [id number]-QIL C-M* Take 1 capsule by mouth three* LUTEIN 20 MG CAPSULE Take 1 capsule by mouth. MULTIVITAMIN TABLET Take 1 tablet by mouth once d* CRANBERRY FRUIT CONCENTRATE 4* Take by mouth. * VITAMIN D3 1,000 UNIT CHEWABL* * COMPOUNDED PRESCRIPTION Sustain eye drops when wearin* * COMPOUNDED PRESCRIPTION maxi vision 2 times daily More... More... Problem List As Of Date 04/20/2018 Noted Resolved Hypertension goal BP (blood pressure) < 140/90 * Priority: A More... Routine general medical examination at a health*INVALID FOR*12/18/2011 More... BMI 28.0-28.9,adult [Z68.28] INVALID FOR* Priority: B More... Mixed hyperlipidemia [E78.2] INVALID FOR* Priority: A More... Abnormal mammogram, unspecified [R92.8] INVALID FOR* Priority: C More... Osteopenia of multiple sites [M85.89] INVALID FOR* Priority: M More... 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 Anxiety and depression [F41.9, F32.9] INVALID FOR* Priority: A Venous stasis dermatitis of both lower extremit*INVALID FOR* Priority: B Well adult exam [Z00.00] INVALID FOR* Priority: E More... Type 2 diabetes mellitus without complication, *INVALID FOR* Priority: A More... 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 Other instructions from your clinician: Please get fasting labs on or after 10/09/2018 prior to next visit. Medications Discontinued During This Encounter FLUoxetine HCl (PROZAC) 40 mg capsule 90 c* 1 02/14/2018 04/20/2018 Route: ORAL Sig: TAKE 1 CAPSULE BY MOUTH ONCE DAILY. Disc: Discontinued by Patient Disposition: Return in about 6 months (around 10/18/2018) for [facility]medicare wellness 40 min. Follow-up and Disposition History Recorded Encounter Status:Closed by SIDDHARTH LOVE on 04/20/18 PROGRESS Observed: 12/25/2017 Status: COMPLETED Source: [place] 9:01 AM [facility] REPOSITORY O ID: [id number] Author: Bruna Mulligan LPN Service: (none) Author Type: (none) Type: Progress Notes Filed: 12/25/2017 9:10 AM Note Text: Manual Readin/74 Pulse: 80 Reason for blood pressure check - Last BP elevated and Medication adjustment Patient is: Taking medication as prescribed Yes Took medication today Yes If no, date medication last taken N/A Experiencing side effects No BP was borderline at nurse visit 11/27/17. Was started on HCTZ 12.5mg daily. This was also to help with swelling that she notes in her left ankle. Reports that she still has the swelling; non-pitting. Has not been wearing her compression stockings consistently; will do so know. Denies any chest pain, shortness of breath, dizziness, or headaches. No caffeine use. No personal history of tobacco use; no current exposure. Alert and oriented. Pt has been identified by name and birthdate: Yes Allergies reviewed: Yes Latex allergy: no. Medication - prescribed and OTC reviewed and updated: Yes Do you need any prescription refills prior to your next visit: No Health Maintenance: Reviewed and up to date Patient advised to continue with current medications and would be contacted with any further instructions after review by PCP. Bruna Mulligan LPN CNNURSE Observed: 12/25/2017 Status: COMPLETED Source: [place] 9:00 AM [facility] REPOSITORY Nurse Visit (FAMPWS) CATHIE PERERA ([id number]) 1950 F Date Time Provider Department 12/25/17 9:00 [facility] During your visit today, we recorded the following information about you: Pulse Blood pressure 80/minute 132/74 Bruna Mulligan LPN 12/25/2017 9:10 AM Signed Manual Readin/74 Pulse: 80 Reason for blood pressure check - Last BP elevated and Medication adjustment Patient is: Taking medication as prescribed Yes Took medication today Yes If no, date medication last taken N/A Experiencing side effects No BP was borderline at nurse visit 11/27/17. Was started on HCTZ 12.5mg daily. This was also to help with swelling that she notes in her left ankle. Reports that she still has the swelling; non-pitting. Has not been wearing her compression stockings consistently; will do so know. Denies any chest pain, shortness of breath, dizziness, or headaches. No caffeine use. No personal history of tobacco use; no current exposure. Alert and oriented. Pt has been identified by name and birthdate: Yes Allergies reviewed: Yes Latex allergy: no. Medication - prescribed and OTC reviewed and updated: Yes Do you need any prescription refills prior to your next visit: No Health Maintenance: Reviewed and up to date Patient advised to continue with current medications and would be contacted with any further instructions after review by PCP. Bruna Mulligan LPN Referring Provider: SIDDHARTH LOVE [[id number]] Allergies As of Date: 12/25/2017 Noted Allergy Reaction KIWI 06/28/2014 7 - Swelling LISINOPRIL 02/15/2013 3 - Cough PENICILLINS 10/27/2007 2 - Rash SULFA (SULFONAMIDE ANTIBIOTICS) 10/27/2007 2 - Rash Date Reviewed: 10/09/2017 Reviewed by: Siddharth Love - Fully Assessed Reason for Visit: Blood Pressure Check [195] Primary Visit Diagnosis:Hypertension goal BP (blood pressure) < 140/90 [I10] Prescriptions as of 12/25/2017 Sig: CALCIUM 600 + D ORAL Take 1 tablet by mouth twice * HYDROCHLOROTHIAZIDE 12.5 MG C* Take 1 capsule by mouth once * LOSARTAN 100 MG TABLET Take 1 tablet by mouth once d* ASPIRIN 81 MG TABLET,DELAYED * Take 1 tablet by mouth once d* FLUOXETINE 40 MG CAPSULE Take 1 capsule by mouth once * ATORVASTATIN 20 MG TABLET TAKE 1 TABLET BY MOUTH ONCE D* METFORMIN 500 MG TABLET Take 2 tablets by mouth twice* AZO BLADDER CONTROL ORAL Take by mouth three times da* BLOOD SUGAR DIAGNOSTIC STRIPS Test blood sugar(s) 1 times d* LANCETS 28 GAUGE Test blood sugar(s) 1 times d* [id number] C-M* Take 1 capsule by mouth three* LUTEIN 20 MG CAPSULE Take 1 capsule by mouth. MULTIVITAMIN TABLET Take 1 tablet by mouth once d* CRANBERRY FRUIT CONCENTRATE 4* Take by mouth. * VITAMIN D3 1,000 UNIT CHEWABL* * COMPOUNDED PRESCRIPTION Sustain eye drops when wearin* * COMPOUNDED PRESCRIPTION maxi vision 2 times daily More... More... Problem List As Of Date 12/25/2017 Noted Resolved Hypertension goal BP (blood pressure) < 140/90 * Priority: A More... Routine general medical examination at a health*INVALID FOR*12/18/2011 More... BMI 28.0-28.9,adult [Z68.28] INVALID FOR* Priority: B More... Mixed hyperlipidemia [E78.2] INVALID FOR* Priority: A More... Abnormal mammogram, unspecified [R92.8] INVALID FOR* Priority: C More... Osteopenia of multiple sites [M85.89] INVALID FOR* Priority: M More... 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 Anxiety and depression [F41.9, F32.9] INVALID FOR* Priority: A Venous stasis dermatitis of both lower extremit*INVALID FOR* Priority: B Well adult exam [Z00.00] INVALID FOR* Priority: E More... Type 2 diabetes mellitus without complication, *INVALID FOR* Priority: A Obstructive sleep apnea syndrome [G47.33] INVALID FOR* Priority: B More... Primary ovarian failure [E28.39] INVALID FOR* Screening for osteoporosis [Z13.820] INVALID FOR* Screening for colon cancer [Z12.11] INVALID FOR* Encounter Status:Closed by BRUNA MULLIGAN LPN on 12/25/17 PROGRESS Observed: 11/27/2017 Status: COMPLETED Source: [place] 10:15 AM [facility] REPOSITORY O ID: [id number] Author: Bruna Mulligan LPN Service: (none) Author Type: (none) Type: Progress Notes Filed: 11/27/2017 10:32 AM Note Text: Manual Readin/86 Pulse: 70 BP Chi average: 135/82 P: 68 Reason for blood pressure check - Last BP elevated and Medication adjustment Patient is: Taking medication as prescribed Yes Took medication today Yes If no, date medication last taken N/A Experiencing side effects No BP continued to be elevated 10/30/17. Losartan was increased to 100mg daily. Tolerating medication change well. Recent significant stressors at home. Also notes non-pitting edema in left ankle. Denies any chest pain, shortness of breath, dizziness, or headaches. No caffeine use. No personal history of tobacco use; no current exposure. Alert and oriented. Pt has been identified by name and birthdate: Yes Allergies reviewed: Yes Latex allergy: no. Medication - prescribed and OTC reviewed and updated: Yes Do you need any prescription refills prior to your next visit: No Health Maintenance: Reviewed and up to date Patient advised to continue with current medications and would be contacted with any further instructions after review by PCP. Bruna Mulligan LPN CNNURSE Observed: 11/27/2017 Status: COMPLETED Source: [place] 10:15 AM [facility] REPOSITORY Nurse Visit (FAMPWS) CATHIE PERERA ([id number]) 1950 F Date Time Provider Department 11/27/17 10:15 AM [facility] During your visit today, we recorded the following information about you: Pulse Blood pressure 68/minute 135/82 Bruna Mulligan LPN 11/27/2017 10:32 AM Signed Manual Readin/86 Pulse: 70 BP Chi average: 135/82 P: 68 Reason for blood pressure check - Last BP elevated and Medication adjustment Patient is: Taking medication as prescribed Yes Took medication today Yes If no, date medication last taken N/A Experiencing side effects No BP continued to be elevated 10/30/17. Losartan was increased to 100mg daily. Tolerating medication change well. Recent significant stressors at home. Also notes non-pitting edema in left ankle. Denies any chest pain, shortness of breath, dizziness, or headaches. No caffeine use. No personal history of tobacco use; no current exposure. Alert and oriented. Pt has been identified by name and birthdate: Yes Allergies reviewed: Yes Latex allergy: no. Medication - prescribed and OTC reviewed and updated: Yes Do you need any prescription refills prior to your next visit: No Health Maintenance: Reviewed and up to date Patient advised to continue with current medications and would be contacted with any further instructions after review by PCP. Bruna Mulligan LPN Referring Provider: SIDDHARTH LOVE [[id number]] Allergies As of Date: 11/27/2017 Noted Allergy Reaction KIWI 06/28/2014 7 - Swelling LISINOPRIL 02/15/2013 3 - Cough PENICILLINS 10/27/2007 2 - Rash SULFA (SULFONAMIDE ANTIBIOTICS) 10/27/2007 2 - Rash Date Reviewed: 10/09/2017 Reviewed by: Siddharth Love - Fully Assessed Reason for Visit: Blood Pressure Check [195] Primary Visit Diagnosis:Hypertension goal BP (blood pressure) < 140/90 [I10] Prescriptions as of 11/27/2017 Sig: CALCIUM 600 + D ORAL Take 1 tablet by mouth twice * LOSARTAN 100 MG TABLET Take 1 tablet by mouth once d* ASPIRIN 81 MG TABLET,DELAYED * Take 1 tablet by mouth once d* FLUOXETINE 40 MG CAPSULE Take 1 capsule by mouth once * ATORVASTATIN 20 MG TABLET TAKE 1 TABLET BY MOUTH ONCE D* METFORMIN 500 MG TABLET Take 2 tablets by mouth twice* AZO BLADDER CONTROL ORAL Take by mouth three times da* BLOOD SUGAR DIAGNOSTIC STRIPS Test blood sugar(s) 1 times d* LANCETS 28 GAUGE Test blood sugar(s) 1 times d* [id number] C-M* Take 1 capsule by mouth three* LUTEIN 20 MG CAPSULE Take 1 capsule by mouth. MULTIVITAMIN TABLET Take 1 tablet by mouth once d* CRANBERRY FRUIT CONCENTRATE 4* Take by mouth. * VITAMIN D3 1,000 UNIT CHEWABL* * COMPOUNDED PRESCRIPTION Sustain eye drops when wearin* * COMPOUNDED PRESCRIPTION maxi vision 2 times daily More... More... Problem List As Of Date 11/27/2017 Noted Resolved Hypertension goal BP (blood pressure) < 140/90 * Priority: A More... Routine general medical examination at a health*INVALID FOR*12/18/2011 More... BMI 28.0-28.9,adult [Z68.28] INVALID FOR* Priority: B More... Mixed hyperlipidemia [E78.2] INVALID FOR* Priority: A More... Abnormal mammogram, unspecified [R92.8] INVALID FOR* Priority: C More... Osteopenia of multiple sites [M85.89] INVALID FOR* Priority: M More... 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 Anxiety and depression [F41.9, F32.9] INVALID FOR* Priority: A Venous stasis dermatitis of both lower extremit*INVALID FOR* Priority: B Well adult exam [Z00.00] INVALID FOR* Priority: E More... Type 2 diabetes mellitus without complication, *INVALID FOR* Priority: A Obstructive sleep apnea syndrome [G47.33] INVALID FOR* Priority: B More... Primary ovarian failure [E28.39] INVALID FOR* Screening for osteoporosis [Z13.820] INVALID FOR* Screening for colon cancer [Z12.11] INVALID FOR* Classic SmartForms filed during this visit: [employer] Vitals Encounter Status:Closed by BRUNA MULLIGAN LPN on 11/27/17 PROGRESS Observed: 10/30/2017 Status: COMPLETED Source: [place] 10:17 AM [facility] REPOSITORY HNO ID: [id number] Author: Bruna Mulligan LPN Service: (none) Author Type: (none) Type: Progress Notes Filed: 10/30/2017 10:35 AM Note Text: Manual Readin/88 Pulse: 74 BP Chi average: 149/82 P: 74 Reason for blood pressure check - Last BP elevated Patient is: Taking medication as prescribed Yes Took medication today Yes If no, date medication last taken N/A Experiencing side effects No BP continued to be elevated at nurse visit 10/23/17. However, she had not had her medications that day. Has taken medications today. Denies any chest pain, shortness of breath, dizziness, or headaches. No caffeine use. No personal history of tobacco use; no current exposure. Alert and oriented. Pt has been identified by name and birthdate: Yes Allergies reviewed: Yes Latex allergy: no. Medication - prescribed and OTC reviewed and updated: Yes Do you need any prescription refills prior to your next visit: No Health Maintenance: Reviewed and up to date Patient advised that she would be contacted after review by PCP. Bruna Mulligan LPN CNNURSE Observed: 10/30/2017 Status: COMPLETED Source: [place] 10:15 AM [facility] REPOSITORY Nurse Visit (FAMPWS) CATHIE PERERA ([id number]) 1950 F Date Time Provider Department 10/30/17 10:15 AM [facility] During your visit today, we recorded the following information about you: Pulse Blood pressure 74/minute 149/82 Bruna Mulligan LPN 10/30/2017 10:35 AM Signed Manual Readin/88 Pulse: 74 BP Chi average: 149/82 P: 74 Reason for blood pressure check - Last BP elevated Patient is: Taking medication as prescribed Yes Took medication today Yes If no, date medication last taken N/A Experiencing side effects No BP continued to be elevated at nurse visit 10/23/17. However, she had not had her medications that day. Has taken medications today. Denies any chest pain, shortness of breath, dizziness, or headaches. No caffeine use. No personal history of tobacco use; no current exposure. Alert and oriented. Pt has been identified by name and birthdate: Yes Allergies reviewed: Yes Latex allergy: no. Medication - prescribed and OTC reviewed and updated: Yes Do you need any prescription refills prior to your next visit: No Health Maintenance: Reviewed and up to date Patient advised that she would be contacted after review by PCP. Bruna Mulligan LPN Referring Provider: SIDDHARTH LOVE [[id number]] Allergies As of Date: 10/30/2017 Noted Allergy Reaction KIWI 06/28/2014 7 - Swelling LISINOPRIL 02/15/2013 3 - Cough PENICILLINS 10/27/2007 2 - Rash SULFA (SULFONAMIDE ANTIBIOTICS) 10/27/2007 2 - Rash Date Reviewed: 10/09/2017 Reviewed by: Siddharth Love - Fully Assessed Reason for Visit: Blood Pressure Check [195] Primary Visit Diagnosis:Hypertension goal BP (blood pressure) < 140/90 [I10] Prescriptions as of 10/30/2017 Sig: LOSARTAN 50 MG TABLET Take 1 tablet by mouth once d* ASPIRIN 81 MG TABLET,DELAYED * Take 1 tablet by mouth once d* FLUOXETINE 40 MG CAPSULE Take 1 capsule by mouth once * ATORVASTATIN 20 MG TABLET TAKE 1 TABLET BY MOUTH ONCE D* METFORMIN 500 MG TABLET Take 2 tablets by mouth twice* AZO BLADDER CONTROL ORAL Take by mouth three times da* BLOOD SUGAR DIAGNOSTIC STRIPS Test blood sugar(s) 1 times d* LANCETS 28 GAUGE Test blood sugar(s) 1 times d* [id number] C-M* Take 1 capsule by mouth three* LUTEIN 20 MG CAPSULE Take 1 capsule by mouth. MULTIVITAMIN TABLET Take 1 tablet by mouth once d* CRANBERRY FRUIT CONCENTRATE 4* Take by mouth. * VITAMIN D3 1,000 UNIT CHEWABL* * COMPOUNDED PRESCRIPTION Sustain eye drops when wearin* * COMPOUNDED PRESCRIPTION maxi vision 2 times daily More... More... Problem List As Of Date 10/30/2017 Noted Resolved Hypertension goal BP (blood pressure) < 140/90 * Priority: A More... Routine general medical examination at a health*INVALID FOR*12/18/2011 More... BMI 28.0-28.9,adult [Z68.28] INVALID FOR* Priority: B More... Mixed hyperlipidemia [E78.2] INVALID FOR* Priority: A More... Abnormal mammogram, unspecified [R92.8] INVALID FOR* Priority: C More... Osteopenia of multiple sites [M85.89] INVALID FOR* Priority: M More... 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 Anxiety and depression [F41.8] INVALID FOR* Priority: A Venous stasis dermatitis of both lower extremit*INVALID FOR* Priority: B Well adult exam [Z00.00] INVALID FOR* Priority: E More... Type 2 diabetes mellitus without complication, *INVALID FOR* Priority: A Obstructive sleep apnea syndrome [G47.33] INVALID FOR* Priority: B More... Primary ovarian failure [E28.39] INVALID FOR* Screening for osteoporosis [Z13.820] INVALID FOR* Screening for colon cancer [Z12.11] INVALID FOR* Classic SmartForms filed during this visit: Extended Vitals Encounter Status:Closed by BRUNA MULLIGAN LPN on 10/30/17 PROGRESS Observed: 10/23/2017 Status: COMPLETED Source: [place] 9:41 AM [facility] REPOSITORY HNO ID: [id number] Author: Bruna Mulligan LPN Service: (none) Author Type: (none) Type: Progress Notes Filed: 10/23/2017 10:01 AM Note Text: Manual Readin/86 Pulse: 74 BP Chi average: 170/94 P: 68 Reason for blood pressure check - Last BP elevated Patient is: Taking medication as prescribed Yes Took medication today No If no, date medication last taken 10/22/17 Experiencing side effects No BP was elevated at last appt 10/09/17. No BP medication changes were made at that time. Has not had medications yet today d/t no food eaten. Denies any chest pain, shortness of breath, dizziness, or headaches. No caffeine use. No personal history of tobacco use; no current exposure. Alert and oriented. Pt has been identified by name and birthdate: Yes Allergies reviewed: Yes Latex allergy: no. Medication - prescribed and OTC reviewed and updated: Yes Do you need any prescription refills prior to your next visit: No Health Maintenance: Reviewed and up to date Patient advised that she would be contacted after review by PCP. Bruna Mulligan LPN CNNURSE Observed: 10/23/2017 Status: COMPLETED Source: [place] 9:30 AM [facility] REPOSITORY Nurse Visit (FAMPWS) CATHIE PERERA ([id number]) 1950 F Date Time Provider Department 10/23/17 9:30 AM IN NURSE [facility] During your visit today, we recorded the following information about you: Pulse Blood pressure 68/minute 170/94 Bruna Mulligan LPN 10/23/2017 10:01 AM Signed Manual Readin/86 Pulse: 74 BP Chi average: 170/94 P: 68 Reason for blood pressure check - Last BP elevated Patient is: Taking medication as prescribed Yes Took medication today No If no, date medication last taken 10/22/17 Experiencing side effects No BP was elevated at last appt 10/09/17. No BP medication changes were made at that time. Has not had medications yet today d/t no food eaten. Denies any chest pain, shortness of breath, dizziness, or headaches. No caffeine use. No personal history of tobacco use; no current exposure. Alert and oriented. Pt has been identified by name and birthdate: Yes Allergies reviewed: Yes Latex allergy: no. Medication - prescribed and OTC reviewed and updated: Yes Do you need any prescription refills prior to your next visit: No Health Maintenance: Reviewed and up to date Patient advised that she would be contacted after review by PCP. Bruna Mulligan LPN Referring Provider: SIDDHARTH LOVE [[id number]] Allergies As of Date: 10/23/2017 Noted Allergy Reaction KIWI 06/28/2014 7 - Swelling LISINOPRIL 02/15/2013 3 - Cough PENICILLINS 10/27/2007 2 - Rash SULFA (SULFONAMIDE ANTIBIOTICS) 10/27/2007 2 - Rash Date Reviewed: 10/09/2017 Reviewed by: Siddharth Love - Fully Assessed Reason for Visit: Blood Pressure Check [195] Primary Visit Diagnosis:Hypertension goal BP (blood pressure) < 140/90 [I10] Prescriptions as of 10/23/2017 Sig: LOSARTAN 50 MG TABLET Take 1 tablet by mouth once d* ASPIRIN 81 MG TABLET,DELAYED * Take 1 tablet by mouth once d* FLUOXETINE 40 MG CAPSULE Take 1 capsule by mouth once * ATORVASTATIN 20 MG TABLET TAKE 1 TABLET BY MOUTH ONCE D* METFORMIN 500 MG TABLET Take 2 tablets by mouth twice* AZO BLADDER CONTROL ORAL Take by mouth three times da* BLOOD SUGAR DIAGNOSTIC STRIPS Test blood sugar(s) 1 times d* LANCETS 28 GAUGE Test blood sugar(s) 1 times d* [id number]-[id number] C-M* Take 1 capsule by mouth three* LUTEIN 20 MG CAPSULE Take 1 capsule by mouth. MULTIVITAMIN TABLET Take 1 tablet by mouth once d* CRANBERRY FRUIT CONCENTRATE 4* Take by mouth. * VITAMIN D3 1,000 UNIT CHEWABL* * COMPOUNDED PRESCRIPTION Sustain eye drops when wearin* * COMPOUNDED PRESCRIPTION maxi vision 2 times daily More... More... Problem List As Of Date 10/23/2017 Noted Resolved Hypertension goal BP (blood pressure) < 140/90 * Priority: A More... Routine general medical examination at a [facility]*INVALID FOR*12/18/2011 More... BMI 28.0-28.9,adult [Z68.28] INVALID FOR* Priority: B More... Mixed hyperlipidemia [E78.2] INVALID FOR* Priority: A More... Abnormal mammogram, unspecified [R92.8] INVALID FOR* Priority: C More... Osteopenia of multiple sites [M85.89] INVALID FOR* Priority: M More... 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 Anxiety and depression [F41.8] INVALID FOR* Priority: A Venous stasis dermatitis of both lower extremit*INVALID FOR* Priority: B Well adult exam [Z00.00] INVALID FOR* Priority: E More... Type 2 diabetes mellitus without complication, *INVALID FOR* Priority: A Obstructive sleep apnea syndrome [G47.33] INVALID FOR* Priority: B More... Primary ovarian failure [E28.39] INVALID FOR* Screening for osteoporosis [Z13.820] INVALID FOR* Screening for colon cancer [Z12.11] INVALID FOR* Classic SmartForms filed during this visit: Extended Vitals Encounter Status:Closed by BRUNA MULLIGAN ALAYNA on 10/23/17 BD DXA - AXIAL Observed: 10/20/2017 Status: F Source: [place] 9:41 AM [facility] REPOSITORY * * *Final Report* * * DATE OF EXAM: Oct 20 2017 9:41AM WRB [id number] - BD DXA - AXIAL SKELETON B / PROCEDURE REASON: multiple diagnoses * * * * Physician Interpretation * * * * EXAM: BD DXA - AXIAL SKELETON HISTORY: Screening for osteoporosis. Risk factors: Previous fracture. TECHNIQUE: Bone densitometry of lumbar spine and both hips performed on [employer] Discovery C bone densitometer. FINDINGS: LUMBAR SPINE: BMD measured at L1-4 region of interest is 1.023 g/cm2. T-score = -0.2 Z-score = 1.7 Comments: There has been a 2.7% decrease in mean density since the previous study dated 03/10/2013. LEFT HIP: BMD measured at femoral neck region of interest is 0.695 g/cm2. T-score = -1.4 Z-score = 0.2 Comments: There has been a 7.6% decrease in femoral neck BMD since the previous study dated 03/10/2013. RIGHT HIP: BMD measured at femoral neck region of interest is 0.743 g/cm2. T-score = -1.0 Z-score = 0.7 Comments: None. IMPRESSION: DIAGNOSIS: OSTEOPENIA. 10-Year Probability of Fracture: Major osteoporotic fracture risk is 25% Hip fracture risk is 2.3% Based on risk factors and left femoral neck BMD World Health Organization Definition of Osteoporosis and Osteopenia: Normal = T-score -1.0 or higher Osteopenia = T-score between -1.0 and -2.5 Osteoporosis = T-score -2.5 or lower Severe Osteoporosis = T-score -2.5 or lower and history of fragility fracture Spooling Machine Operator: RACHEL Transcribe Date/Time: Oct 22 2017 8:16A Dictated by : Fina WELDON MD This examination was interpreted and the report reviewed and electronically signed by: Fina WELDON MD on Oct 22 2017 8:37AM EST [id number] PROGRESS Observed: 10/20/2017 Status: COMPLETED Source: [place] 9:26 AM [facility] REPOSITORY HNO ID: [id number] Author: Lorna Mulligan Rt Service: (none) Author Type: (none) Type: Progress Notes Filed: 10/20/2017 9:41 AM Note Text: Cathie Perera October 20, 2017 [id number] Double identification: Patient identified by name and Bone Density Completed. Lorna Mulligan Rt patient told of radiation jk 10:00am not FECAL OCCULT BLD Collected: 10/20/2017 Status: F Source: [facility] 6:15 AM [facility] [place] REPOSITORY TYPE CODE TESTS RESULT OUT OF REFERENCE UNITS RANGE LAB IFO Negative Immuno Negative FOB Result Comment: This test was developed and its performance characteristics determined by [facility]'s Rduy Angela [facility] [place] ([facility]). It has not been cleared or approved by the FDA. -[facility] is regulated under CLIA as qualified to perform high-complexity testing. This test is used for clinical purposes. It should not be regarded as investigational or for research. Performed By: #### IFOBT #### [facility] [address] [address] ALBUMIN/CREAT RATIO Collected: 10/09/2017 Status: F Source: [place] 10:52 AM [facility] REPOSITORY TYPE CODE TESTS RESULT OUT OF REFERENCE UNITS RANGE LAB UCRR 20-300 mg/dL 133.4 Creatinine,Ur ine,Ran LAB UALBR 0.0-23.0 mg/L <12.0 Albumin Urine Random LAB UALBCR 0-30 mg/g Not Albumin/Creat calculated Ratio Performed By: #### UACR #### [facility] [address] [address] URINALYSIS WITH Collected: 10/09/2017 Status: F Source: [facility] 10:52 AM [facility] REPOSITORY TYPE CODE TESTS RESULT OUT OF RANGE REFERENCE UNITS LAB UCOL Yellow Color Yellow LAB [facility] Clear Clarity Abnormal Cloudy Alert LAB UGLUC Negative mg/dL Glucose, Urine Negative LAB UBIL Negative Bilirubin, Urine Negative LAB UKET Negative Ketones, Urine Negative LAB USPG 1.005-1.030 Specific [place], Ur 1.017 LAB UHGB Negative Hemoglobin/Blood, Negative Ur LAB UPH 4.5-8.0 pH 6.0 LAB UPROT Negative mg/dL Protein, Urine Negative LAB UUROB Normal Urobilinogen Normal LAB UNITR Negative Nitrites Negative LAB ULKEST Negative Leukest Negative LAB UCOM Comments SEE COMMENT Result Comment: N/A LAB UMCOM Urine SEE Leonides Comment COMMENT Result Comment: N/A LAB UWBC 0-5 /HPF WBC 0-5 LAB URBC 0-3 /HPF RBC 0-3 LAB UEPI /HPF Epithelial SEE Cells COMMENT Result Comment: Few Squamous Epithelial Cells Performed By: #### UAWMIC #### [facility] [address] [place], [place] [address] HEMOGLOBIN A1C Collected: 10/09/2017 Status: F Source: [place] 10:41 AM [facility] REPOSITORY TYPE CODE TESTS RESULT OUT OF REFERENCE UNITS RANGE LAB HGBA1C 4.3-5.6 % High Hemoglobin A1c 6.7 LAB HBA0 mg/dL Est. Average Glucose 146 Result Comment: eAG: (Estimated average glucose) is a calculated value from HgbA1c and is textile designs sales representative of the average blood glucose level in the last 2-3 month period. Performed By: #### HBA1C, CMP, LIPB #### [facility] [address] [address] COMP METABOLIC PANEL Collected: 10/09/2017 Status: F Source: [place] 10:41 [facility] REPOSITORY TYPE CODE TESTS RESULT OUT OF REFERENCE UNITS RANGE LAB TP 6.3-8.0 g/dL Protein, Total 7.5 LAB ALB 3.9-4.9 g/dL Albumin 4.2 LAB CA 8.5-10.2 mg/dL Calcium, Total 10.2 LAB TBIL 0.2-1.3 mg/dL Bilirubin, High Total 1.5 LAB ALKP 32-117 U/L Alkaline Phosphatase 93 LAB AST 13-35 U/L AST 25 LAB GLU 74-99 mg/dL Glucose High 123 Result Comment: The [place] Diabetes Association (ADA) provides guidance for cutoff values for fasting glucose and random glucose. The ADA defines fasting as no caloric intake for at least 8 hours. Fas ting plasma glucose results between 100 to 125 mg/dL indicate increased risk for diabetes (prediabetes). Fasting plasma glucose results greater than or equal to 126 mg/dL meet the criteria for diagnosis of diabetes. In the absence of unequivocal hyperglycemia, results should be confirmed by repeat testing. In a patient with classic symptoms of hyperglycemia or hyperglycemic crisis, random plasma glucose results greater than or equal to 200 mg/dL meet the criteria for diagnosis of diabetes. Reference: Standards of Medical Care in Diabetes 2016, [place] Diabetes Association. Diabetes Care. 2016.39(Suppl 1). LAB BUN 7-21 mg/dL BUN 15 LAB CRET 0.58-0.96 mg/dL Creatinine 0.72 LAB NA 136-144 mmol/L Sodium 142 LAB K 3.7-5.1 mmol/L Potassium 4.3 LAB CL 97-105 mmol/L Chloride 102 LAB CO2 22-30 mmol/L Low CO2 21 LAB AGAP 9-18 mmol/L Anion Gap High 19 LAB ALT 7-38 U/L ALT 20 LAB GFRAA eGFR- Amer. >60 LAB GFRNAA . eGFR-All Other Races >60 Result Comment: eGFR (Estimated GFR) Units of measure: mL/min/1.73 meters squared eGFR is derived from the reexpressed MDRD Study equation using the following parameters: serum creatinine, age, gender and race. The creatinine assay has been calibrated to be traceable to IDMS. An eGFR <60 mL/min/1.73m2 for >3 months is consistent with chronic kidney disease. Refer to KDOQI guidelines for clinical interpretation. In patients with unstable renal function, e.g. those with acute kidney injury, the eGFR may not accurately reflect actual GFR. Performed By: #### HBA1C, CMP, LIPB #### [facility] [address] [id number] LIPID PANEL, BASIC Collected: 10/09/2017 Status: F Source: [place] 10:41 AM [facility] REPOSITORY TYPE CODE TESTS RESULT OUT OF REFERENCE UNITS RANGE LAB CHOL <200 mg/dL Cholesterol 149 Result Comment: <200 mg/dL, Desirable 200-239 mg/dL, Borderline high >239 mg/dL, High LAB TRIGLY <150 mg/dL Triglyceride 100 Result Comment: <150 mg/dL, Normal 150-199 mg/dL, Borderline high 200-499 mg/dL, High >499 mg/dL, Very high LAB HDL >39 mg/dL HDL-Cholesterol 70 Result Comment: 40-59 mg/dL, Acceptable >59 mg/dL, High: Negative risk factor for coronary heart disease <40 mg/dL, Low: Positive risk factor for coronary heart disease LAB LDL <100 mg/dL LDL-Cholesterol 59 Result Comment: <100 mg/dL, Optimal 100-129 mg/dL, Near optimal/above optimal 130-159 mg/dL, Borderline high 160-189 mg/dL, High >189 mg/dL, Very high Secondary prevention optimal LDL Cholesterol levels are recommended to be < 70 mg/dL LAB NONHDL <130 mg/dL Non HDL Cholesterol 79 Result Comment: <130 mg/dL, Optimal 130-159 mg/dL, Near optimal/above optimal 160-189 mg/dL, Borderline high 190-219 mg/dL, High >219 mg/dL, Very high Secondary prevention optimal non HDL Cholesterol levels are recommended to be < 100 mg/dL LAB FT hrs Fasting Time 16 LAB VLDL <30 mg/dL VLDL Cholesterol 20 LAB TCHDL <5.10 TC:HDL Ratio 2.13 LAB LDLHDL <2.54 LDL:HDL Ratio 0.84 Result Comment: Reference: 1. National Cholesterol Education Program ATP III Guideline At-A-Glance Quick Desk Reference: National Heart, Lung, and Blood [place]. National Institutes of Health. 2001: NIH Publication No. 01-3305. 2. An International Atherosclerosis Society position paper: global recommendations for the management of dyslipidemia: executive summary, Atherosclerosis. 2014: 232(2):410-413. Performed By: #### HBA1C, CMP, LIPB #### [facility] [address] [address] PROGRESS Observed: 10/09/2017 Status: COMPLETED Source: [place] 9:39 AM [facility] REPOSITORY O ID: [id number] Author: Siddharth Love Service: (none) Author Type: Physician Type: Progress Notes Filed: 10/09/2017 8:04 PM Note Text: Medicare Yearly Visit Medical B eligibilty date 08/04/2015 Date of last exam NA PAST MEDICAL HISTORY Diagnosis Date - Abnormal mammogram, unspecified 01/12/2008 [place] 6-08: rec stereotactic biopsy for both breasts given the abnormal findings - Anxiety and depression 10/09/2017 - BMI 28.0-28.9,adult 11/24/2007 TSH 5 in 9-98 4 pounds of wt loss as of 12-09 appt - Cystocele, midline 12/25/2009 - Depression Seasonal Affective Disorder - Depressive disorder, not elsewhere classified Seasonal Affective Disorder - Disorder of bone and cartilage 08/22/2008 BMD 04-04: LS spine + 1.1, femur -0.01, normal. Distal radius fracture on L by X ray 08-07 - Diverticulosis of colon (without mention of hemorrhage) - DM type 2 (diabetes mellitus, type 2) ([facility]) 12/24/2013 - Essential hypertension, benign - Hypertension goal BP (blood pressure) < 140/90 ECG 12-06: NSR, NL axis and intervals Creat 0.9 in 12-09 Tolerating HCTZ as of 01-09 despite Sulfa allergy - Mixed hyperlipidemia 12/24/2007 LDL 148, HDL 49, TG 103 in 12-09: no meds for wt loss - Rectocele 12/25/2009 - Sleep apnea 12-05: effic 93%, AHI 20, low sat 88% (CPAP trial showed 7 cm as optimal pressure) Septoplasty and nasal polyp removed 02-[address] Adler Uses C-Pap as of 11-09 - Unspecified sleep apnea uses C-Pap - Vaginal vault prolapse, posthysterectomy 12/25/2009 - Venous insufficiency 02/15/2013 PAST SURGICAL HISTORY Procedure Laterality Date - BX BREAST PERC VACUUM/ROTN 01/29/08 BILATERAL - COLONOSCOP W/ OR W/O [facility] SPEC 12/11/2011 Colonoscopy - PAST SURGICAL HISTORY OF [address] Vaca - [facility],PERC,DURING BREAST BX 01/29/08 BILATERAL - REPAIR OF NASAL SEPTUM 2001 for Sleep Apnea - SIGMOIDOSCOPY FLEX; DX 07/07/01 - TOTAL ABDOM HYSTERECTOMY 1990 Endometriosis Kiwi; Lisinopril; Penicillins; Sulfa (Sulfonamide Antibiotics) Medications reviewed: Yes FAMILY HISTORY Problem Relation Age of Onset - Thyroid Mother - Cancer Father DM, Prostate Cancer - Coronary Artery Disease Mother - Lipids Mother - Diabetes Father - Coronary Artery Disease Father - Hypertension Father - renal insufficiency [Other] [OTHER] Father SOCIAL HISTORY: Social History Marital status: Spouse name: anu Years of education: 12 Number of children: 1 Occupational History Occupation Employer Comment homemaker Social History Main Topics Smoking status: Never Smoker Smokeless status: Never Used Alcohol use: No Drug use: No Sexual activity: Yes Partners with: Male control/protection: Surgical Comment: hysterectomy Social History Narrative Seamstress (unhappily), 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 She watches her diet for sodium, low fat and low cholesterol all of the time. List of current specialists seen: Dr. Vaca, End of Live Planning discussed including patients advanced directive wishes: Yes I am willing to follow Cathie's advanced directives. Depression screen She in the past two weeks denies having felt down, depressed, hopeless or with little interest or pleasure in doing things. Functional Ability/Safety Screen 1. Was the patient's timed Up and Go test unsteady or longer than 30 seconds? No 2. Does the patient need help with the phone, transportation, shopping,preparing meals, housework, laundry, medications or managing money? No 3. Does your home have rugs in the hallway, lack of grab bars in the bathroom, lack of handrails on the stairs or have poor lighting? No Hearing Evaluation: normal PHYSICAL EXAM BP 142/80 (BP Site: Right Arm, BP Position: Sitting, BP Cuff Size: Large Adult) Pulse 78 Resp 14 Ht 171.5 cm (5' 7.5) Wt 81.2 kg (179 lb) BMI 27.62 kg/m2 Alert and oriented X 3: YES Body mass index is 27.62 kg/(m2). Seeing optho See below ASSESSMENT/PLAN: 67 year old female The following prevention plan was discussed during the office visit and provided to the patient: See below Siddharth Love MD Chief Complaint Patient presents with: Establish Care: physical HPI Cathie Perera is a 67 year old female who presents here today for establishment of care and extensive exam. Patient with Hx as reviewed, updated and documented below. Has been doing better with the prozac at 40 mg a day. Past medical history, appointments, medications, allergies reviewed. Previous Medical History PAST MEDICAL HISTORY Diagnosis Date - Abnormal mammogram, unspecified 01/12/2008 [place] 01-09: rec stereotactic biopsy for both breasts given the abnormal findings - Anxiety and depression 10/09/2017 - BMI 28.0-28.9,adult 11/24/2007 TSH 5 in 9-98 4 pounds of wt loss as of 12-09 appt - Cystocele, midline 12/25/2009 - Depression Seasonal Affective Disorder - Depressive disorder, not elsewhere classified Seasonal Affective Disorder - Disorder of bone and cartilage 08/22/2008 BMD 04-04: LS spine + 1.1, femur -0.01, normal. Distal radius fracture on L by X ray 08-07 - Diverticulosis of colon (without mention of hemorrhage) - DM type 2 (diabetes mellitus, type 2) ([facility]) 12/24/2013 - Essential hypertension, benign - Hypertension goal BP (blood pressure) < 140/90 ECG 12-06: NSR, NL axis and intervals Creat 0.9 in 12-09 Tolerating HCTZ as of 01-09 despite Sulfa allergy - Mixed hyperlipidemia 12/24/2007 LDL 148, HDL 49, TG 103 in 12-09: no meds for wt loss - Rectocele 12/25/2009 - Sleep apnea 12-05: effic 93%, AHI 20, low sat 88% (CPAP trial showed 7 cm as optimal pressure) Septoplasty and nasal polyp removed 02-[address] Adler Uses C-Pap as of 11-09 - Unspecified sleep apnea uses C-Pap - Vaginal vault prolapse, posthysterectomy 12/25/2009 - Venous insufficiency 02/15/2013 Previous Surgical History PAST SURGICAL HISTORY Procedure Laterality Date - BX BREAST PERC VACUUM/ROTN 01/29/08 BILATERAL - COLONOSCOP W/ OR W/O [facility] SPEC 12/11/2011 Colonoscopy - PAST SURGICAL HISTORY OF [address] Vaca - [facility],PERC,DURING BREAST BX 01/29/08 BILATERAL - REPAIR OF NASAL SEPTUM 2001 for Sleep Apnea - SIGMOIDOSCOPY FLEX; DX 07/07/01 - TOTAL ABDOM HYSTERECTOMY 1990 Endometriosis Family History FAMILY HISTORY Problem Relation Age of Onset - Thyroid Mother - Cancer Father DM, Prostate Cancer - Coronary Artery Disease Mother - Lipids Mother - Diabetes Father - Coronary Artery Disease Father - Hypertension Father - renal insufficiency [Other] [OTHER] Father Patient Allergies ALLERGIES Allergen Reactions - Kiwi Swelling - Lisinopril Cough - Penicillins Rash - Sulfa (Sulfonamide * Rash Current Medications Current Outpatient Prescriptions on File Prior to Visit: FLUoxetine HCl (PROZAC) 40 mg capsule Take 1 capsule by mouth once daily. atorvastatin (LIPITOR) 20 mg tablet TAKE 1 TABLET BY MOUTH ONCE DAILY. metFORMIN (GLUCOPHAGE) 500 mg tablet Take 2 tablets by mouth twice daily with meals. losartan (COZAAR) 50 mg tablet Take 1 tablet by mouth once daily. PUMPKIN SEED EXTRACT/SOY GERM (AZO BLADDER CONTROL ORAL) Take by mouth three times daily. blood sugar diagnostic (FREESTYLE LITE STRIPS) test strip Test blood sugar(s) 1 times daily. Dx: E11.9. Insulin: No lancets (FREESTYLE LANCETS) 28 gauge misc Test blood sugar(s) 1 times daily. Dx: E11.9. Insulin: No Vmkhgpmsgmj-Sjbxonytv-Qly C-Mn (GLUCOSAMINE CHONDROITIN MAXSTR) 500-400 mg cap Take 1 capsule by mouth three times daily. Lutein 20 mg cap Take 1 capsule by mouth. multivitamin tablet Take 1 tablet by mouth once daily. Cranberry Extract (CRANBERRY) 450 mg tab Take by mouth. cholecalciferol(VITAMIN D-3 1,000 UNIT CHEWABLE TAB) COMPOUNDED PRESCRIPTION Sustain eye drops when wearing contacts COMPOUNDED PRESCRIPTION maxi vision 2 times daily No current facility-administered medications on file prior to visit. 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 : No history of dysuria or blood. MUSCULOSKELETAL: Negative for joint pain or swelling, back pain or muscle pain SKIN: Negative for lesions, rash, and itching PSYCH: Negative for sleep disturbance, mood disorder and recent psychosocial stressors HEMATOLOGY/LYMPHOLOGY: Negative for prolonged bleeding, bruising easily or swollen nodes ENDOCRINE: Negative for cold or heat intolerance and no low BS's NEURO: No history of headaches, syncope, paralysis, seizures. Every once in awhile will have a tremor in the left hand and seems to be with holding something. EXAM: BP 142/80 (BP Site: Right Arm, BP Position: Sitting, BP Cuff Size: Large Adult) Pulse 78 Resp 14 Ht 171.5 cm (5' 7.5) Wt 81.2 kg (179 lb) BMI 27.62 kg/m2 BP 148/92 Pulse 78 Resp 14 Ht 171.5 cm (5' 7.5) Wt 81.2 kg (179 lb) BMI 27.62 kg/m2 Last 6 Encounter BP Readings: Date: BP: 10/09/2017 148/92 07/23/2017 132/80 07/08/2017 140/99 02/26/2017 138/76 02/22/2017 124/78 09/19/2016 130/85 General Appearance: Well appearing, alert, in no acute distress, well-hydrated, well nourished.. Skin: Skin color, texture, turgor normal, no suspicious rashes or lesions. Head: Normocephalic, no masses, lesions, tenderness or abnormalities. Eyes: Anicteric sclera. Pupils are equally round and reactive to light. Extraocular movements are intact. . Ears: External ears normal, canals clear. Nose/Sinuses: Nares normal, septum midline, mucosa normal, no drainage or sinus tenderness. Oropharynx: Lips, mucosa, and tongue normal, teeth and gums normal, oropharynx normal. Neck: Supple, no adenopathy; thyroid symmetric, normal size, no bruits. Lungs: Lungs clear to auscultation. No wheezing, rhonchi, rales. Heart: RRR without murmur, gallop, or rubs. No ectopy. Abdomen: Normal abdominal exam, Abdomen soft, non-tender. Bowel sounds normal. No masses, organomegaly. Extremities: No deformities. Has chronic edema on the left leg. Some mild venous stasis changes. Musculoskeletal: Spine range of motion normal. Muscular strength intact, No joint swelling, deformity, or tenderness. Peripheral Pulses: Normal. Neurologic: Gait normal. Reflexes normal and symmetric. Sensation to light touch and crainal nerves 2-12 intact. Feet: Shoes and socks removed, No deformities, ulcers, calluses, normal distal pulses, sensitive to 10 gm monofilament and vibratory perception normal . Health Maintenance List HBA1C due on 08/29/2017 URINE ALBUMIN CREATININE RATIO due on 02/26/2018 LDL due on 02/26/2018 DIABETIC FOOT EXAM due on 02/26/2018 MAMMOGRAM due on 03/03/2018 DILATED RETINAL EXAM due on 03/18/2018 PNEUMOVAX AGE 65 AND OVER WITH 5YR LOOKBACK(1) due on 04/27/2019 TETANUS due on 11/15/2019 COLORECTAL CANCER SCREENING,SEE MODIFIER due on 12/11/2021 BONE DENSITY Completed ADULT PREVNAR-13 Completed INFLUENZA Completed HEPATITIS C SCREENING Completed Data reviewed A/P ASSESSMENT/PLAN: 1. Medicare annual wellness visit, subsequent - ICD9: V70.0, ICD10: Z00.00 (primary diagnosis) - Encouraged monthly Breast Self Exam - Follow up for annual exam in one year. 2. Type 2 diabetes mellitus without complication, without long-term current use of insulin (HCC) - ICD9: 250.00, ICD10: E11.9 Will await labs - Continue current medications - Daily Asprin therapy recommended - BP goal of <130/80 - LDL goal of <100 - COMP METABOLIC PANEL - ALBUMIN/CREAT RATIO RND UR - HGB A1C - LIPID PANEL BASIC - URINALYSIS WITH MICROSCOPIC 3. Hypertension goal BP (blood pressure) < 140/90 - ICD9: 401.9, ICD10: I10 - suboptimal control - Continue current medication(s) - Recommended regular aerobic exercise. - Recommend home blood pressure monitoring, to bring results in on next visit - Goal of BP <130/80 - COMP METABOLIC PANEL - HGB A1C - LIPID PANEL BASIC - URINALYSIS WITH MICROSCOPIC - NV BP check in 2-3 weeks 4. Mixed hyperlipidemia - ICD9: 272.2, ICD10: E78.2 Await labs - Continue current dose of atorvastatin (Lipitor) 20 mg. - Encouraged following a low fat, low cholesterol diet. - Discussed the benefits of regular aerobic exercise and weight loss. - Encouraged following a low carbohydrate, healthy oil intake diet. - COMP METABOLIC PANEL - HGB A1C - LIPID PANEL BASIC - URINALYSIS WITH MICROSCOPIC 5. Disorder of bone and cartilage - ICD9: 733.90, ICD10: M89.9, M94.9 - Reviewed the need for Calcium and Vitamin D supplements and weight bearing exercise as tolerated - DXA-AXIAL SKELETON 6. Anxiety and depression - ICD9: 300.00, 311, ICD10: F41.8 - Cont the prozac, Doing well on 40 mg a day. 7. Obstructive sleep apnea syndrome - ICD9: 327.23, ICD10: G47.33 - benefiting from CPAP and is to continue. 8. Venous stasis dermatitis of both lower extremities - ICD9: 454.1, ICD10: I87.2 - Stable no issues 9. Venous insufficiency - ICD9: 459.81, ICD10: I87.2 - Stable cont support sock which does help. 10. Leg edema, left - ICD9: 782.3, ICD10: R60.0 - As above 11. 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 Screening for osteoporosis - ICD9: V82.81, ICD10: Z13.820 Check - DXA-AXIAL SKELETON 13. Screening for colon cancer - ICD9: V76.51, ICD10: Z12.11 check - FECAL OCCULT BLOOD TEST F/u 2-3 weeks NV BP check F/u 6 months routine Time with patient face to face was 40 min for extensive and 10 min for medicare wellness. Siddharth Love MD CNOV Observed: 10/09/2017 Status: COMPLETED Source: [place] 9:20 AM [facility] REPOSITORY Office Visit (FAMPWS) CATHIE PERERA ([id number]) 1950 F Date Time Provider Department 10/09/17 9:20 AM SIDDHARTH LOVEPWS During your visit today, we recorded the following information about you: Pulse Respiration Blood pressure Weight 78/minute 14/minute 148/92 81.2 kg Height 1.715 m Siddharth Love MD 10/09/2017 8:04 PM Signed Medicare Yearly Visit Medical B eligibilty date 08/04/2015 Date of last exam NA PAST MEDICAL HISTORY Diagnosis Date - Abnormal mammogram, unspecified 01/12/2008 [place] 01-09: rec stereotactic biopsy for both breasts given the abnormal findings - Anxiety and depression 10/09/2017 - BMI 28.0-28.9,adult 11/24/2007 TSH 5 in 9-98 4 pounds of wt loss as of 12-09 appt - Cystocele, midline 12/25/2009 - Depression Seasonal Affective Disorder - Depressive disorder, not elsewhere classified Seasonal Affective Disorder - Disorder of bone and cartilage 08/22/2008 BMD 04-04: LS spine + 1.1, femur -0.01, normal. Distal radius fracture on L by X ray 08-07 - Diverticulosis of colon (without mention of hemorrhage) - DM type 2 (diabetes mellitus, type 2) ([facility]) 12/24/2013 - Essential hypertension, benign - Hypertension goal BP (blood pressure) ANDlt; 140/90 ECG 12-06: NSR, NL axis and intervals Creat 0.9 in 12-09 Tolerating HCTZ as of 01-09 despite Sulfa allergy - Mixed hyperlipidemia 12/24/2007 LDL 148, HDL 49, TG 103 in 12-09: no meds for wt loss - Rectocele 12/25/2009 - Sleep apnea 12-05: effic 93%, AHI 20, low sat 88% (CPAP trial showed 7 cm as optimal pressure) Septoplasty and nasal polyp removed 02-[address] Adler Uses C-Pap as of 11-09 - Unspecified sleep apnea uses C-Pap - Vaginal vault prolapse, posthysterectomy 12/25/2009 - Venous insufficiency 02/15/2013 PAST SURGICAL HISTORY Procedure Laterality Date - BX BREAST PERC VACUUM/ROTN 01/29/08 BILATERAL - COLONOSCOP W/ OR W/O [facility] SPEC 12/11/2011 Colonoscopy - PAST SURGICAL HISTORY OF [address] Vaca - [facility] CLIP,PERC,DURING BREAST BX 01/29/08 BILATERAL - REPAIR OF NASAL SEPTUM 2001 for Sleep Apnea - SIGMOIDOSCOPY FLEX; DX 07/07/01 - TOTAL ABDOM HYSTERECTOMY 1990 Endometriosis Kiwi; Lisinopril; Penicillins; Sulfa (Sulfonamide Antibiotics) Medications reviewed: Yes FAMILY HISTORY Problem Relation Age of Onset - Thyroid Mother - Cancer Father DM, Prostate Cancer - Coronary Artery Disease Mother - Lipids Mother - Diabetes Father - Coronary Artery Disease Father - Hypertension Father - renal insufficiency [Other] [OTHER] Father SOCIAL HISTORY: Social History Marital status: Spouse name: anu Years of education: 12 Number of children: 1 Occupational History Occupation Employer Comment homemaker Social History Main Topics Smoking status: Never Smoker Smokeless status: Never Used Alcohol use: No Drug use: No Sexual activity: Yes Partners with: Male control/protection: Surgical Comment: hysterectomy Social History Narrative Seamstress (unhappily), 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 She watches her diet for sodium, low fat and low cholesterol all of the time. List of current specialists seen: Dr. Vaca, End of Live Planning discussed including patients advanced directive wishes: Yes I am willing to follow Cathie's advanced directives. Depression screen She in the past two weeks denies having felt down, depressed, hopeless or with little interest or pleasure in doing things. Functional Ability/Safety Screen 1. Was the patient's timed Up and Go test unsteady or longer than 30 seconds? No 2. Does the patient need help with the phone, transportation, shopping,preparing meals, housework, laundry, medications or managing money? No 3. Does your home have rugs in the hallway, lack of grab bars in the bathroom, lack of handrails on the stairs or have poor lighting? No Hearing Evaluation: normal PHYSICAL EXAM BP 142/80 (BP Site: Right Arm, BP Position: Sitting, BP Cuff Size: Large Adult) Pulse 78 Resp 14 Ht 171.5 cm (5' 7.5ANDquot;) Wt 81.2 kg (179 lb) BMI 27.62 kg/m2 Alert and oriented X 3: YES Body mass index is 27.62 kg/(m2). Seeing optho See below ASSESSMENT/PLAN: 67 year old female The following prevention plan was discussed during the office visit and provided to the patient: See below Siddharth Love MD Chief Complaint Patient presents with: Establish Care: physical HPI Cathie Perera is a 67 year old female who presents here today for establishment of care and extensive exam. Patient with Hx as reviewed, updated and documented below. Has been doing better with the prozac at 40 mg a day. Past medical history, appointments, medications, allergies reviewed. Previous Medical History PAST MEDICAL HISTORY Diagnosis Date - Abnormal mammogram, unspecified 01/12/2008 Cebul 01-09: rec stereotactic biopsy for both breasts given the abnormal findings - Anxiety and depression 10/09/2017 - BMI 28.0-28.9,adult 11/24/2007 TSH 5 in 9-98 4 pounds of wt loss as of 12-09 appt - Cystocele, midline 12/25/2009 - Depression Seasonal Affective Disorder - Depressive disorder, not elsewhere classified Seasonal Affective Disorder - Disorder of bone and cartilage 08/22/2008 BMD 04-04: LS spine + 1.1, femur -0.01, normal. Distal radius fracture on L by X ray 08-07 - Diverticulosis of colon (without mention of hemorrhage) - DM type 2 (diabetes mellitus, type 2) ([facility]) 12/24/2013 - Essential hypertension, benign - Hypertension goal BP (blood pressure) ANDlt; 140/90 ECG 12-06: NSR, NL axis and intervals Creat 0.9 in 12-09 Tolerating HCTZ as of 01-09 despite Sulfa allergy - Mixed hyperlipidemia 12/24/2007 LDL 148, HDL 49, TG 103 in 12-09: no meds for wt loss - Rectocele 12/25/2009 - Sleep apnea 12-05: effic 93%, AHI 20, low sat 88% (CPAP trial showed 7 cm as optimal pressure) Septoplasty and nasal polyp removed 02-[address] Adler Uses C-Pap as of 11-09 - Unspecified sleep apnea uses C-Pap - Vaginal vault prolapse, posthysterectomy 12/25/2009 - Venous insufficiency 02/15/2013 Previous Surgical History PAST SURGICAL HISTORY Procedure Laterality Date - BX BREAST PERC VACUUM/ROTN 01/29/08 BILATERAL - COLONOSCOP W/ OR W/O [facility] SPEC 12/11/2011 Colonoscopy - PAST SURGICAL HISTORY OF [address] Vaca - [facility] CLIP,PERC,DURING BREAST BX 01/29/08 BILATERAL - REPAIR OF NASAL SEPTUM 2001 for Sleep Apnea - SIGMOIDOSCOPY FLEX; DX 07/07/01 - TOTAL ABDOM HYSTERECTOMY 1990 Endometriosis Family History FAMILY HISTORY Problem Relation Age of Onset - Thyroid Mother - Cancer Father DM, Prostate Cancer - Coronary Artery Disease Mother - Lipids Mother - Diabetes Father - Coronary Artery Disease Father - Hypertension Father - renal insufficiency [Other] [OTHER] Father Patient Allergies ALLERGIES Allergen Reactions - Kiwi Swelling - Lisinopril Cough - Penicillins Rash - Sulfa (Sulfonamide * Rash Current Medications Current Outpatient Prescriptions on File Prior to Visit: FLUoxetine HCl (PROZAC) 40 mg capsule Take 1 capsule by mouth once daily. atorvastatin (LIPITOR) 20 mg tablet TAKE 1 TABLET BY MOUTH ONCE DAILY. metFORMIN (GLUCOPHAGE) 500 mg tablet Take 2 tablets by mouth twice daily with meals. losartan (COZAAR) 50 mg tablet Take 1 tablet by mouth once daily. PUMPKIN SEED EXTRACT/SOY GERM (AZO BLADDER CONTROL ORAL) Take by mouth three times daily. blood sugar diagnostic (FREESTYLE LITE STRIPS) test strip Test blood sugar(s) 1 times daily. Dx: E11.9. Insulin: No lancets (FREESTYLE LANCETS) 28 gauge misc Test blood sugar(s) 1 times daily. Dx: E11.9. Insulin: No Gxtqyssktoe-Ildzjyasd-Qhr C-Mn (GLUCOSAMINE CHONDROITIN MAXSTR) 500-400 mg cap Take 1 capsule by mouth three times daily. Lutein 20 mg cap Take 1 capsule by mouth. multivitamin tablet Take 1 tablet by mouth once daily. Cranberry Extract (CRANBERRY) 450 mg tab Take by mouth. cholecalciferol(VITAMIN D-3 1,000 UNIT CHEWABLE TAB) COMPOUNDED PRESCRIPTION Sustain eye drops when wearing contacts COMPOUNDED PRESCRIPTION maxi vision 2 times daily No current facility-administered medications on file prior to visit. 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 : No history of dysuria or blood. MUSCULOSKELETAL: Negative for joint pain or swelling, back pain or muscle pain SKIN: Negative for lesions, rash, and itching PSYCH: Negative for sleep disturbance, mood disorder and recent psychosocial stressors HEMATOLOGY/LYMPHOLOGY: Negative for prolonged bleeding, bruising easily or swollen nodes ENDOCRINE: Negative for cold or heat intolerance and no low BS's NEURO: No history of headaches, syncope, paralysis, seizures. Every once in awhile will have a tremor in the left hand and seems to be with holding something. EXAM: BP 142/80 (BP Site: Right Arm, BP Position: Sitting, BP Cuff Size: Large Adult) Pulse 78 Resp 14 Ht 171.5 cm (5' 7.5ANDquot;) Wt 81.2 kg (179 lb) BMI 27.62 kg/m2 BP 148/92 Pulse 78 Resp 14 Ht 171.5 cm (5' 7.5ANDquot;) Wt 81.2 kg (179 lb) BMI 27.62 kg/m2 Last 6 Encounter BP Readings: Date: BP: 10/09/2017 148/92 07/23/2017 132/80 07/08/2017 140/99 02/26/2017 138/76 02/22/2017 124/78 09/19/2016 130/85 General Appearance: Well appearing, alert, in no acute distress, well-hydrated, well nourished.. Skin: Skin color, texture, turgor normal, no suspicious rashes or lesions. Head: Normocephalic, no masses, lesions, tenderness or abnormalities. Eyes: Anicteric sclera. Pupils are equally round and reactive to light. Extraocular movements are intact. . Ears: External ears normal, canals clear. Nose/Sinuses: Nares normal, septum midline, mucosa normal, no drainage or sinus tenderness. Oropharynx: Lips, mucosa, and tongue normal, teeth and gums normal, oropharynx normal. Neck: Supple, no adenopathy; thyroid symmetric, normal size, no bruits. Lungs: Lungs clear to auscultation. No wheezing, rhonchi, rales. Heart: RRR without murmur, gallop, or rubs. No ectopy. Abdomen: Normal abdominal exam, Abdomen soft, non-tender. Bowel sounds normal. No masses, organomegaly. Extremities: No deformities. Has chronic edema on the left leg. Some mild venous stasis changes. Musculoskeletal: Spine range of motion normal. Muscular strength intact, No joint swelling, deformity, or tenderness. Peripheral Pulses: Normal. Neurologic: Gait normal. Reflexes normal and symmetric. Sensation to light touch and crainal nerves 2-12 intact. Feet: Shoes and socks removed, No deformities, ulcers, calluses, normal distal pulses, sensitive to 10 gm monofilament and vibratory perception normal . Health Maintenance List HBA1C due on 08/29/2017 URINE ALBUMIN CREATININE RATIO due on 02/26/2018 LDL due on 02/26/2018 DIABETIC FOOT EXAM due on 02/26/2018 MAMMOGRAM due on 03/03/2018 DILATED RETINAL EXAM due on 03/18/2018 PNEUMOVAX AGE 65 AND OVER WITH 5YR LOOKBACK(1) due on 04/27/2019 TETANUS due on 11/15/2019 COLORECTAL CANCER SCREENING,SEE MODIFIER due on 12/11/2021 BONE DENSITY Completed ADULT PREVNAR-13 Completed INFLUENZA Completed HEPATITIS C SCREENING Completed Data reviewed A/P ASSESSMENT/PLAN: 1. Medicare annual wellness visit, subsequent - ICD9: V70.0, ICD10: Z00.00 (primary diagnosis) - Encouraged monthly Breast Self Exam - Follow up for annual exam in one year. 2. Type 2 diabetes mellitus without complication, without long-term current use of insulin (HCC) - ICD9: 250.00, ICD10: E11.9 Will await labs - Continue current medications - Daily Asprin therapy recommended - BP goal of ANDlt;130/80 - LDL goal of ANDlt;100 - COMP METABOLIC PANEL - ALBUMIN/CREAT RATIO RND UR - HGB A1C - LIPID PANEL BASIC - URINALYSIS WITH MICROSCOPIC 3. Hypertension goal BP (blood pressure) ANDlt; 140/90 - ICD9: 401.9, ICD10: I10 - suboptimal control - Continue current medication(s) - Recommended regular aerobic exercise. - Recommend home blood pressure monitoring, to bring results in on next visit - Goal of BP ANDlt;130/80 - COMP METABOLIC PANEL - HGB A1C - LIPID PANEL BASIC - URINALYSIS WITH MICROSCOPIC - NV BP check in 2-3 weeks 4. Mixed hyperlipidemia - ICD9: 272.2, ICD10: E78.2 Await labs - Continue current dose of atorvastatin (Lipitor) 20 mg. - Encouraged following a low fat, low cholesterol diet. - Discussed the benefits of regular aerobic exercise and weight loss. - Encouraged following a low carbohydrate, healthy oil intake diet. - COMP METABOLIC PANEL - HGB A1C - LIPID PANEL BASIC - URINALYSIS WITH MICROSCOPIC 5. Disorder of bone and cartilage - ICD9: 733.90, ICD10: M89.9, M94.9 - Reviewed the need for Calcium and Vitamin D supplements and weight bearing exercise as tolerated - DXA-AXIAL SKELETON 6. Anxiety and depression - ICD9: 300.00, 311, ICD10: F41.8 - Cont the prozac, Doing well on 40 mg a day. 7. Obstructive sleep apnea syndrome - ICD9: 327.23, ICD10: G47.33 - benefiting from CPAP and is to continue. 8. Venous stasis dermatitis of both lower extremities - ICD9: 454.1, ICD10: I87.2 - Stable no issues 9. Venous insufficiency - ICD9: 459.81, ICD10: I87.2 - Stable cont support sock which does help. 10. Leg edema, left - ICD9: 782.3, ICD10: R60.0 - As above 11. 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 Screening for osteoporosis - ICD9: V82.81, ICD10: Z13.820 Check - DXA-AXIAL SKELETON 13. Screening for colon cancer - ICD9: V76.51, ICD10: Z12.11 check - FECAL OCCULT BLOOD TEST F/u 2-3 weeks NV BP check F/u 6 months routine Time with patient face to face was 40 min for [facility] and 10 min for medicare wellness. Siddharth Love MD Referring Provider: KIMBERLEY MORGAN ([facility]) [[id number]] Allergies As of Date: 10/09/2017 Noted Allergy Reaction KIWI 06/28/2014 7 - Swelling LISINOPRIL 02/15/2013 3 - Cough PENICILLINS 10/27/2007 2 - Rash SULFA (SULFONAMIDE ANTIBIOTICS) 10/27/2007 2 - Rash Date Reviewed: 10/09/2017 Reviewed by: Siddharth Love - Fully Assessed Reason for Visit: Establish Care [42] Cmt: physical Primary Visit Diagnosis:Medicare annual wellness visit, subsequent [Z00.00] Comment:last Done: 10/09/2017 Other Visit Diagnoses:Type 2 diabetes mellitus without complication, without long-term current use of insulin (HCC) [E11.9] Hypertension goal BP (blood pressure) < 140/90 [I10] Mixed hyperlipidemia [E78.2] Disorder of bone and cartilage [M89.9, M94.9] Anxiety and depression [F41.8] Obstructive sleep apnea syndrome [G47.33] Venous stasis dermatitis of both lower extremities [I87.2] Venous insufficiency [I87.2] Leg edema, left [R60.0] Primary ovarian failure [E28.39] Screening for osteoporosis [Z13.820] Screening for colon cancer [Z12.11] Order(s):DXA-AXIAL SKELETON [4084934] Order #: [id number] FUTURE COMP METABOLIC PANEL [SQCMP] Order #: [id number] FUTURE ALBUMIN/CREAT RATIO RND UR [SQUACR] Order #: [id number] FUTURE FECAL OCCULT BLOOD TEST [SQIFOBT] Order #: [id number] FUTURE HGB A1C [GHUEZ8N] Order #: [id number] FUTURE LIPID PANEL BASIC [SQLIPB] Order #: [id number] FUTURE URINALYSIS WITH MICROSCOPIC [SQUAWMIC] Order #: [id number] FUTURE aspirin, enteric coated (ADULT ASPIRIN REGIMEN) 81 mg EC tabletTake 1 tablet by mouth once daily.Disp: Rfl: Prescriptions as of 10/09/2017 Sig: FLUOXETINE 40 MG CAPSULE Take 1 capsule by mouth once * ATORVASTATIN 20 MG TABLET TAKE 1 TABLET BY MOUTH ONCE D* METFORMIN 500 MG TABLET Take 2 tablets by mouth twice* X LOSARTAN 50 MG TABLET Take 1 tablet by mouth once d* AZO BLADDER CONTROL ORAL Take by mouth three times da* BLOOD SUGAR DIAGNOSTIC STRIPS Test blood sugar(s) 1 times d* LANCETS 28 GAUGE Test blood sugar(s) 1 times d* ZLGXROSRRGE-JRCXKPDML-VYY C-M* Take 1 capsule by mouth three* LUTEIN 20 MG CAPSULE Take 1 capsule by mouth. MULTIVITAMIN TABLET Take 1 tablet by mouth once d* CRANBERRY FRUIT CONCENTRATE 4* Take by mouth. * VITAMIN D3 1,000 UNIT CHEWABL* * COMPOUNDED PRESCRIPTION Sustain eye drops when wearin* * COMPOUNDED PRESCRIPTION maxi vision 2 times daily ASPIRIN 81 MG TABLET,DELAYED * Take 1 tablet by mouth once d* More... More... Problem List As Of Date 10/09/2017 Noted Resolved Hypertension goal BP (blood pressure) < 140/90 * Priority: A More... Routine general medical examination at a health*INVALID FOR*12/18/2011 More... BMI 28.0-28.9,adult [Z68.28] INVALID FOR* Priority: B More... Mixed hyperlipidemia [E78.2] INVALID FOR* Priority: A More... Abnormal mammogram, unspecified [R92.8] INVALID FOR* Priority: C More... Disorder of bone and cartilage [M89.9, M94.9] INVALID FOR* Priority: M More... 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 Anxiety and depression [F41.8] INVALID FOR* Priority: A Venous stasis dermatitis of both lower extremit*INVALID FOR* Priority: B Well adult exam [Z00.00] INVALID FOR* Priority: E More... Type 2 diabetes mellitus without complication, *INVALID FOR* Priority: A Obstructive sleep apnea syndrome [G47.33] INVALID FOR* Priority: B More... Primary ovarian failure [E28.39] INVALID FOR* Screening for osteoporosis [Z13.820] INVALID FOR* Screening for colon cancer [Z12.11] INVALID FOR* Prescriptions ordered this encounter Disp Refills Start End ASPIRIN 81 MG TABLET,DELAYED RELEASE 10/09/2017 Class: Med Update Route: ORAL Sig: Take 1 tablet by mouth once daily. Medications Discontinued During This Encounter atorvastatin (LIPITOR) 20 mg tablet 30 t* 5 07/29/2017 10/09/2017 Sig: TAKE 1 TABLET BY MOUTH ONCE DAILY. Disc: Duplicate Entry traZODone (DESYREL) 50 mg tablet 30 t* 11 02/26/2016 10/09/2017 Class: Print RX Route: ORAL Sig: Take 1 tablet by mouth at bedtime as needed. FOR SLEEP Disc: Course of therapy completed LORazepam (ATIVAN) 0.5 mg tab 20 t* 0 02/26/2016 10/09/2017 Class: Print RX Route: ORAL Sig: Take 1 tablet by mouth twice daily as needed. Disc: Course of therapy completed Disposition: Return in about 6 months (around 04/11/2018) for routine. Follow-up and Disposition History Recorded Encounter Status:Closed by SIDDHARTH LOVE on 10/09/17 JOHNNA Observed: 09/23/2017 Status: COMPLETED Source: [place] 12:00 AM [facility] REPOSITORY Patient Outreach (FAMPST) CATHIE PERERA ([id number]) 1950 F Date Time Provider Department 09/23/17 OLESYA DAMON [facility] During your visit today, we recorded the following information about you: Allergies As of Date: 09/23/2017 Noted Allergy Reaction KIWI 06/28/2014 7 - Swelling LISINOPRIL 02/15/2013 3 - Cough PENICILLINS 10/27/2007 2 - Rash SULFA (SULFONAMIDE ANTIBIOTICS) 10/27/2007 2 - Rash Date Reviewed: 07/23/2017 Reviewed by: John Rosenberg Ma - Fully Assessed Visit Diagnosis:Medication management [Z79.899] Prescriptions as of 09/23/2017 Sig: X FLUOXETINE 40 MG CAPSULE Take 1 capsule by mouth once * X ATORVASTATIN 20 MG TABLET TAKE 1 TABLET BY MOUTH ONCE D* X ATORVASTATIN 20 MG TABLET TAKE 1 TABLET BY MOUTH ONCE D* X METFORMIN 500 MG TABLET Take 2 tablets by mouth twice* X LOSARTAN 50 MG TABLET Take 1 tablet by mouth once d* AZO BLADDER CONTROL ORAL Take by mouth three times da* X TRAZODONE 50 MG TABLET Take 1 tablet by mouth at bed* X LORAZEPAM 0.5 MG TABLET Take 1 tablet by mouth twice * BLOOD SUGAR DIAGNOSTIC STRIPS Test blood sugar(s) 1 times d* LANCETS 28 GAUGE Test blood sugar(s) 1 times d* FPJISOVACVE-MWEUGLSYI-NGU C-M* Take 1 capsule by mouth three* LUTEIN 20 MG CAPSULE Take 1 capsule by mouth. MULTIVITAMIN TABLET Take 1 tablet by mouth once d* CRANBERRY FRUIT CONCENTRATE 4* Take by mouth. * VITAMIN D3 1,000 UNIT CHEWABL* * COMPOUNDED PRESCRIPTION Sustain eye drops when wearin* * COMPOUNDED PRESCRIPTION maxi vision 2 times daily Problem List As Of Date 09/23/2017 Noted Resolved Sleep apnea [G47.30] More... More... Hypertension goal BP (blood pressure) < 140/90 * More... Routine general medical examination at a [facility]*INVALID FOR*12/18/2011 More... BMI 28.0-28.9,adult [Z68.28] INVALID FOR* More... Hyperlipidemia [E78.5] INVALID FOR* More... UNSP ABNORMAL MAMMOGRAM [R92.8] INVALID FOR* More... BONE AND CARTILAGE DIS NOS [M89.9, M94.9] INVALID FOR* More... Vaginal Vault Prolapse, Posthysterectomy [N99.3]INVALID FOR* Rectocele [N81.6] INVALID FOR* Cystocele, Midline [N81.11] INVALID FOR* MOON (stress urinary incontinence, female) [N39.*INVALID FOR*02/26/2012 Venous insufficiency [I87.2] INVALID FOR* Adjustment reaction [F43.20] INVALID FOR*08/28/2015 DM type 2 (diabetes mellitus, type 2) ([facility]) [E1*INVALID FOR* More... Encounter Status:Closed by FFWD, PRODUSER on 05/15/18 ALLERGIES ALLERGIES DATE TYPE / CODE NAME / CODE REACTION SEVERITY SOURCE 06/28/2014 DRUG KIWI SWELLING Low [facility] INGREDI/419 [place] [id number](SNOM Repository ED CT) 06/28/2014 DRUG KIWI SWELLING [facility] INGREDI/419 [place] [id number](SNOM Repository ED CT) 02/15/2013 DRUG LISINOPRIL COUGH [facility] INGREDI/419 [place] [id number](SNOM Repository ED CT) 02/15/2013 DRUG LISINOPRIL COUGH [facility] INGREDI/419 [place] [id number](SNOM Repository ED CT) 10/27/2007 Drug PENICILLINS RASH [facility] Class/92496 [place] 1003(SNOMED Repository CT) 10/27/2007 Drug SULFA (SULFONAMIDE RASH [facility] Class/79889 ANTIBIOTICS) [place] 1003(SNOMED Repository CT) 10/27/2007 Drug PENICILLINS RASH [facility] Class/47149 [place] 1003(SNOMED Repository CT) 10/27/2007 Drug SULFA (SULFONAMIDE RASH [facility] Class/62210 ANTIBIOTICS) [place] 1003(SNOMED Repository CT) ENCOUNTERS ENCOUNTERS ADMIT/DISCHARGE ACCOUNT ADMITTING ENCOUNTER LOCATION SOURCE NUMBER CLASS 08/24/2018 [id number] Amb[place] [facility] ing:[facility] Repository 05/25/2018/05/25/20 [id number] Ambulatory [facility] [place] Repository 04/20/2018/04/20/20 [id number] Ambulatory [facility] [place] Repository 04/20/2018/04/21/20 [id number] Ambulatory [facility] [place] Repository 12/25/2017/12/27/19 [id number] Ambulatory [facility] [place] Rep[place] 11/27/2017/11/29/19 [id number] Ambulatory [facility] [place] Rep[place] 10/30/2017/11/01/19 [id number] Ambulatory [facility] [place] Rep[place] 10/23/2017/10/25/19 [id number] Ambulatory [facility] [place] 10/20/2017/10/21/19 [id number] Ambulatory [facility] [place] 10/20/2017/10/21/19 [id number] Ambulatory [facility] [place] Rep[place] 10/09/2017/10/10/19 [id number] Ambulatory [facility] [place] Rep[place] 10/09/2017/10/14/19 [id number] Ambulatory [facility] [place] Repository PAYERS PAYERS ENCOUNTER GUARANTOR PAYER SUBSCRIBER SOURCE 08/24/2018 CATHIE K Primary CATHIE K Kristie [id number] [address]AHR Insurance:MEDICARE HIBBSDOB: [facility] [facility] BPolicy Number: [id number] Hospital [address]Cbd: [phone] [id number] Repository [phone] () Date:2018-08-17 08/24/2018 Secondary CATHIE K [place] Insurance:HUMANA HIBBSDOB: Community COMMERCIALPolicy [id number] Hospital Number: Repository [id number] Date:[id number] [address] [place] [id number]: 08/24/2018 Tertiary NOT GIVENUNK [place] Insurance:SELF PAY [facility] Number: Effective Repository Date:2018-08-17
== END ==
PROVIDERS: Family Provider Family Medicine; PCP Family Medicine; Referring Provider Surgery; Visit Provider Surgery
DX: M79.89 Other specified soft tissue disorders (principal); I87.2 Venous insufficiency (chronic) (peripheral); I83.10 Varicose veins of unspecified lower extremity with inflammation
CPT/HCPCS: 93970

== ENCOUNTER → 2022-09-20 | Outpatient (CLI) | payer MEDICARE, OTHER, SELFPAY ==
--- NOTE | 2022-09-20 08:30 | CYSPIN_PTH ---
PATIENT: CATHIE PERERA LOC: CT U#:[id number] AGE/SX: 72/F ROOM: RE09/20/[address]: Dr. Saray Verdin MD : 1950 BED: DIS: 09/20/2022 SPEC #: [id number] RECD: 09/23/22 07:48 STATUS: [place] REKumar #: [id number] SHELBI: 09/20/22 08:[address]: Saray Verdin DEPT: CYTOLOGY RECD BY: Christine Fierro ENTERED: 09/23/22 07:48 SP TYPE: CYSPIN FL OTHR DR: Dr. Zachary Higuera MD Tissues: Urine Procedures: Pap Stain (control) Special Stain Group II Cytospin Fluid HEADER OPERATION: Not noted PRE-OP DIAGNOSIS: Gross hematuria TISSUE SUBMITTED: Urine for cytology DIAGNOSIS CYTOLOGY Urine for cytology (cytospin): Negative for high-grade urothelial carcinoma (DEGUC), Karyn System Category II. Abundant fungal organisms consistent with Angelique. See comment. AM:toshia 09/23/2022 COMMENT The Karyn System for urine cytology diagnostic categorization was used in the evaluation of this case. CYTOLOGY STUDY Slides are reviewed. CYTOLOGY GROSS Received is 35 ml of yellow cloudy fluid labeled with the patient's name and and designated per the requisition as urine. Submitted for cytology preparation. / toshia 09/20/2022 TC:5 CPT: 58845
[2022-09-20 18:12] LABS: Cytology, Body Fluid / CSF SEE PATHOLOGY REPORT
--- NOTE | 2022-09-25 18:06 | CT_ITS ---
INDICATION: GROSS HEMATURIA EXAMINATION: CT Abdomen And Pelvis WO/W Contrast Injection TECHNIQUE: Helically acquired images were obtained of the abdomen and pelvis after IV contrast. A radiation dose optimization technique was used for this scan. IV Contrast dosage and agent: IV 100mL Isovue-300 Oral contrast: None. COMPARISON: None. FINDINGS: Visualized lung bases: Unremarkable Liver: Unremarkable Gallbladder: Few small intraluminal stones seen. Spleen: Unremarkable Pancreas: Unremarkable Adrenal Glands: Unremarkable Kidneys: Bilateral simple renal cysts. No hydronephrosis or stones. Vasculature: Mild scattered aortoiliac atherosclerotic calcifications. GI Tract: Hiatal hernia. Scattered colonic diverticula. Lymphadenopathy: None Peritoneum: No ascites. Bladder: Unremarkable Reproductive organs: Unremarkable Bones/Soft tissues: There are diffuse degenerative changes of the spine. CT/CT Abd/Pelvis W/WO Contrast IMPRESSION: No acute abnormalities in the abdomen or pelvis. Specifically, no findings to explain patient''s hematuria. Cholelithiasis. Hiatal hernia. Diverticulosis. Electronically Signed: Axel Morejon MD at 22:51 EST ,
[2022-09-25 18:20] LABS: CREATININE FINGERSTICK < 0.9 mg/dL (0.55-1.02); EGFR FINGERSTICK > 60.0000 mL/min (>60)
== END | disposition home or self-care (01) ==
PROVIDERS: PCP Family Medicine; Referring Provider Urology; Visit Provider Urology
DX: R31.0 Gross hematuria (principal)
CPT/HCPCS: 74178; 88108; 88313; Q9967

== ENCOUNTER → 2023-06-17 | Outpatient (CLI) | payer MEDICARE, OTHER, SELFPAY ==
--- NOTE | 2023-06-17 09:07 | ART_ITS ---
Reason For Study: PVD Procedure A bilateral lower extremity continuous wave Doppler with analog waveform analysis,segmental pressures,and ankle brachial indexes without exercise. Left Segmental Pressures Left brachial= 180mmHg. Left posterior tibial artery = 216mmHg. Left dorsalis pedis artery = 210mmHg. Left digit = 109 mmHg. The left dorsalis pedis waveforms are triphasic. The left posterior tibial artery waveforms are triphasic. Right Segmental Pressures Right brachial= 180mmHg. Right posterior tibial artery = 221mmHg. Right dorsalis pedis artery = 206mmHg. Right digit = 75 mmHg. The right dorsalis pedis waveforms are triphasic. The right posterior tibial artery waveforms are triphasic. Indices The right ankle brachial index by the dorsalis pedis is 1.14. The right ankle brachial index by the posterior tibial artery is 1.23. The right digital-brachial index is 0.42. The left ankle brachial index by the dorsalis pedis is 1.17. The left ankle brachial index by the posterior tibial artery is 1.20. The left post exercise ankle brachial index is 0.61. VL/Lower Ext Art Exam w/o Exercis Interpretation Summary Right NAFISA 1.23, normal. Doppler/PVR waveforms of the right leg normal at rest. TBI diminished, pedal/digit disease vs spasm. Left NAFISA 1.2, normal. Doppler/PVR waveforms of the left leg normal at rest. TBI diminished, pedal/digit disease vs spasm. Ordering Physician: Marc Gonzalez Referring Physician: Zachary Higuera Performed By: Mary Rollins RVT
--- NOTE | 2023-06-17 09:07 | VDLE_ITS ---
Reason For Study: Venous insufficiency RIGHT LEFT CFV is compressible, spontaneous, phasic, CFV is compressible, spontaneous, phasic, competent and demonstrates normal competent, and demonstrates normal augmentation. augmentation. FV is compressible, spontaneous, phasic, FV is compressible, spontaneous, phasic, competent and demonstrates normal competent and demonstrates normal augmentation. augmentation. POP V is compressible, spontaneous, phasic, POP V is compressible, spontaneous, phasic, competent and demonstrates normal competent and demonstrates normal augmentation. augmentation. T/P Trunk is compressible. T/P Trunk is compressible. PTV is compressible. PTV is compressible. RT PerV is compressible. LT PerV is compressible. SFJ is INCOMPETENT and measures 0.52 x 0.57 SFJ is INCOMPETENT and measures 0.61 x 0.66 cm. cm. GSV proximal thigh measures 0.32 x 0.32 cm. GSV throughout is absent s/p EVLA. GSV at knee measures 0.16 x 0.17 cm. SSV from junction to mid calf is absent s/p GSV INCOMPETENT throughout for greater than EVLA. 0.5 seconds. Remaining SSV is INCOMPETENT for greater than ASV proximal calf is INCOMPETENT for greater 0.5 seconds. than 0.5 seconds and measures 0.14 x 0.14 cm. ASV from groin is INCOMPETENT for greater ASV mid calf is INCOMPETENT for greater than than 0.5 seconds and measures 0.35 x 0.34 cm. 0.5 seconds and measures 0.28 x 0.25 cm. INCOMPETENT [employer] one [employer] is noted 13 cm above SSV proximal calf is INCOMPETENT for greater medial malleolus. than 0.5 seconds and measures 0.10 x 0.11 cm. INCOMPETENT [employer] one [employer] is noted 6 cm above Procedure medial malleolus. This is a venous duplex using B-mode, color ASV mid calf is INCOMPETENT for greater than flow and spectral Doppler. 0.5 seconds and measures 0.29 x 0.31 cm. Exam performed in department. Patient was scanned in reverse Trendelenburg position during reflux assessment. VL/Venous Duplex US - Sukhdeep Extrem Interpretation Summary Deep veins of the bilateral lower extremities are patent and compressible segme ntally. There is no evidence of bilateral lower extremity deep vein thrombosis. The right great sap henous vein appears patent and compressible segmentally. Prior left great saphenous vein ablation. Positive for reflux in the right saphenofemoral junction, great saphenous vein throughout, accessory saphenous vein, and small saphenous vein. Positive for reflux in the left great saphenous vein, small saphenous vein, acc essory saphenous vein, and 2 calf perforators Ordering Physician: Marc Gonzalez Referring Physician: Zachary Higuera Performed By: Mary Rollins RVT
== END | disposition home or self-care (01) ==
LOC: CVS 09:05
PROVIDERS: PCP Family Medicine; Referring Provider Podiatrist Foot & Ankle Surgery; Visit Provider Podiatrist Foot & Ankle Surgery
DX: I87.2 Venous insufficiency (chronic) (peripheral) (principal); I73.89 Other specified peripheral vascular diseases; M79.606 Pain in leg, unspecified; M79.89 Other specified soft tissue disorders
CPT/HCPCS: 93923; 93970

== ENCOUNTER 2023-08-15 12:19 | Outpatient (CLI) | payer MEDICARE, OTHER, SELFPAY ==
[2023-08-15 12:45] VITALS: BP 132/75; PULSE 87; RESP 16; TEMP 36.9; O2SAT 98; BMI 27.9
[2023-08-15] MEDS: Zoledronic Acid 5 MG 100 ML 300 MG IV (12:55)
[2023-08-15] MEDS: 0.9% NaCl Peripheral Flush Adult/Peds IV (12:55)
[2023-08-15 13:39] VITALS: BP 149/83; PULSE 75; RESP 16; TEMP 36.8; O2SAT 95
== END 2023-08-15 12:20 | disposition home or self-care (01) ==
LOC: MEDOUTP 12:22
PROVIDERS: PCP Family Medicine; Referring Provider Internal Medicine Endocrinology, Diabetes & Metabolism; Visit Provider Internal Medicine Endocrinology, Diabetes & Metabolism
DX: M85.80 Other specified disorders of bone density and structure, unspecified site (principal); E21.0 Primary hyperparathyroidism
CPT/HCPCS: 96365; A4216; J3489

== ENCOUNTER → 2023-12-30 | Outpatient (CLI) | payer MEDICARE, OTHER, SELFPAY | END | disposition home or self-care (01) | LOC: LAB 17:50 | PROVIDERS: PCP Family Medicine; Visit Provider Family Medicine | DX: S91.109A Unspecified open wound of unspecified toe(s) without damage to nail, initial encounter (principal) | CPT/HCPCS: 87070; 87077; 87101; 87186; 87205 ==

== ENCOUNTER 2024-08-16 11:03 | Outpatient (CLI) | payer MEDICARE, OTHER, SELFPAY ==
[2024-08-16 11:19] VITALS: BP 130/78; PULSE 122; RESP 14; TEMP 36.4; O2SAT 98; BMI 25.9
[2024-08-16] MEDS: Zoledronic Acid 5 MG 100 ML 300 MG IV (11:26)
[2024-08-16 12:08] VITALS: BP 101/52; PULSE 92; RESP 16
== END 2024-08-16 23:59 | disposition home or self-care (01) ==
PROVIDERS: PCP Family Medicine; Referring Provider Internal Medicine Endocrinology, Diabetes & Metabolism; Visit Provider Internal Medicine Endocrinology, Diabetes & Metabolism
DX: M81.0 Age-related osteoporosis without current pathological fracture (principal)
CPT/HCPCS: 96365; A4216; J3489

== ENCOUNTER → 2024-09-27 | Outpatient (CLI) | payer MEDICARE, OTHER, SELFPAY ==
--- NOTE | 2024-09-27 09:22 | BI_ITS ---
PROCEDURE: DIAG MAMM W/CAD, UNILAT REASON FOR EXAM: F, Age 74 y/o, abnormal screening mammogram. TECHNIQUE: Bilateral screening digital breast tomosynthesis with 2D and 3D images. Compression spot views of the left breast were obtained. Computer aided detection. COMPARISON: Prior exam(s) dating back to comparison is made with prior outside examination dated September 08, 2024. FINDINGS: Persistent 5.5 mm fat containing nodule in the retroareolar region of the left breast. Correlation with ultrasound recommended.. No suspicious masses, areas of developing architectural distortion, or suspicious calcifications. BI/DIAG MAMM W/CAD, UNILAT IMPRESSION: BI-RADS 0: INCOMPLETE - NEED ADDITIONAL IMAGING EVALUATION. Follow-up code: Sonographic correlation of the left breast. The patient will be notified of the results by letter. Reading Location: [id number]
--- NOTE | 2024-09-27 09:22 | US_ITS ---
PROCEDURE: BREAST LIMITED UNILATERAL REASON FOR EXAM: Abnormal screening mammogram. COMPARISON: Comparison is made with prior mammogram done earlier in the day. TECHNIQUE: Targeted bilateral breast ultrasound. FINDINGS: LEFT: Ultrasound targeted to the periareolar region of the left breast. The mammographic abnormality corresponds to a 6 mm x 6 mm x 2 mm cyst with tiny hypoechoic densities along its anterior wall. Cyst aspiration is recommended. US/Breast Limited Unilateral IMPRESSION: Cyst aspiration recommended. BI-RADS 4: SUSPICIOUS ABNORMALITY. Reading Location: [id number]
== END | disposition home or self-care (01) ==
LOC: OPBI 09:20
PROVIDERS: PCP Family Medicine; Referring Provider Physician Assistant; Visit Provider Physician Assistant
DX: R92.8 Other abnormal and inconclusive findings on diagnostic imaging of breast (principal)
CPT/HCPCS: 76642; 77061; 77065; G0279

== ENCOUNTER → 2024-09-30 | Outpatient (CLI) | payer MEDICARE, OTHER, SELFPAY ==
--- NOTE | 2024-09-30 | BRBX_PTH ---
PATIENT: CATHIE PERERA LOC: [facility] U#:[id number] AGE/SX: 74/F ROOM: RE09/30/[address]: Dr. Tiburcio Chavarria MD : 1950 BED: DIS: 09/30/2024 SPEC #: [id number] RECD: 09/30/24 09:31 STATUS: [place] PLASCENCIA #: [id number] SHELBI: 09/30/24 00:[address]: Tiburcio Chavarria DEPT: SURGICAL PATHOLOGY RECD BY: Gladys Giron ENTERED: 09/30/24 11:04 SP TYPE: BREAST BX OTHR DR: Dr. Zachary Higuera MD Tissues: Left breast, NOS Procedures: Surgery Specimen Level IV HEADER OPERATION: Core needle biopsy of left nodule PRE-OP DIAGNOSIS: Left breast nodule TISSUE SUBMITTED: Left breast nodule MICROSCOPIC DIAGNOSIS Left breast nodule, core biopsy: Fragments of adipose tissue and blood clots. Scant benign breast tissue with apocrine metaplasia. Negative for atypia or malignancy. See comment. 10/01/2024 COMMENT The specimen predominantly consists of blood clots. Correlation with clinical, radiologic findings and appropriate follow up are necessary. MICROSCOPIC DESCRIPTION Slides are reviewed. GROSS DESCRIPTION Received in fixative is one container labeled with the patient's name and designated Left breast nodule. The specimen consists of multiple irregular fragments of olivares-yellow fibroadipose tissue mixed with blood clot that in aggregate measure 2.5 x 1.5 x 0.2 cm. The specimen predominantly consists of blood clot. The specimen is totally submitted in one cassette. 09/30/2024 TC:5 CPT:31898
== END | disposition home or self-care (01) ==
LOC: LABSPEC 09:43
PROVIDERS: PCP Family Medicine; Referring Provider Surgery; Visit Provider Surgery
DX: N60.82 Other benign mammary dysplasias of left breast (principal)
CPT/HCPCS: 88305

== ENCOUNTER → 2025-01-31 | Outpatient (CLI) | payer MEDICARE, OTHER, SELFPAY ==
--- NOTE | 2025-01-31 10:58 | ECHOD_ITS ---
Reason For Study Reason For Study: Murmur Procedure This was a 2D Doppler, Color Flow transthoracic echocardiogram. Exam performed in department. Left Ventricle Normal LV size. Left ventricular systolic function is normal. The left ventricular ejection fraction is 65 %. No regional wall motion abnormalities noted. Right Ventricle Normal RV size. Normal systolic function. Atria The left and right atria are normal. Normal right atrium. Mitral Valve There is mild to moderate mitral annular calcification. Mild (1+) eccentric mitral valve insufficiency. Tricuspid Valve Normal tricuspid valve. Mild tricuspid valve insufficiency. Pulmonary artery systolic pressure is 25 mmHg. Aortic Valve Trisinus/trileaflet aortic valve. Mild focal aortic valve calcification. Pulmonic Valve Normal pulmonic valve. Great Vessels Normal aortic root. Pericardium/Pleural No pericardial effusion. MMode/2D Measurements & Calculations LVIDd: 3.7 cm IVSd: 1.2 cm LVOT diam: 1.9 cm LVIDs: 2.7 cm LVPWd: 0.97 cm LVOT area: 2.9 cm2 RVDd: 3.7 cm FS: 27.3 % Ao root diam: 3.8 cm LAV(MOD-bp): 46.5 ml LVAd ap4: 25.4 cm2 LAV(MOD-bp) Indexed: 24.5 ml/m2 LVLd ap4: 8.0 cm LAV(MOD-sp2): 39.3 ml EDV(MOD-sp4): 64.6 ml LAV(MOD-sp4): 52.0 ml EDV(sp4-el): 68.3 ml LVAs ap4: 13.5 cm2 LVLs ap4: 6.7 cm ESV(MOD-sp4): 23.3 ml ESV(sp4-el): 23.2 ml EF(MOD-sp4): 64.0 % EF(sp4-el): 66.1 % SV(MOD-sp4): 41.3 ml SV(sp4-el): 45.1 ml LA A4 area: 17.9 cm2 SI(MOD-sp4): 21.8 ml/m2 LA dimension(2D): 3.4 cm RA A4 area: 17.3 cm2 TAPSE: 1.5 cm Time Measurements MV dec time: 0.28 sec Doppler Measurements & Calculations MV E max get: 75.4 cm/sec Lat Peak E' Get: 9.2 cm/sec Med Peak E' Get: 5.2 cm/sec MV A max get: 104.0 cm/sec E/E' lat: 8.2 E/E' med: 14.6 MV E/A: 0.73 MV V2 max: 110.0 cm/sec MV P1/2t max get: 92.7 cm/sec Ao V2 max: 125.5 cm/sec MV max P.8 mmHg MV P1/2t: 77.3 msec Ao max P.3 mmHg MV V2 mean: 52.0 cm/sec Ao V2 mean: 90.2 cm/sec MV mean P.4 mmHg MV dec slope: 351.2 cm/sec2 Ao mean P.6 mmHg MV V2 VTI: 33.7 cm MVA(P1/2t): 2.8 cm2 Ao V2 VTI: 31.9 cm AV (velocity ratio): 0.83 MVA(VTI): 2.3 cm2 KINJAL(I,D): 2.4 cm2 KINJAL(V,D): 2.7 cm2 LV V1 max: 116.9 cm/sec SV(LVOT): 78.0 ml PA V2 max: 74.6 cm/sec LV V1 max P.5 mmHg LV V1 mean P.6 mmHg LV V1 mean: 91.4 cm/sec LV V1 VTI: 26.4 cm TR max get: 239.0 cm/sec TR max P.9 mmHg ECHO/Echo Complete Interpretation Summary Normal LV size. Left ventricular systolic function is normal. The left ventricular ejection fraction is 65 %. Structurally normal valves. Ordering Physician: Jackelin Jaffe Referring Physician: Jackelin Jaffe Performed By: Ulices Ramos RCS
== END | disposition home or self-care (01) ==
LOC: CVS 10:57
PROVIDERS: PCP Internal Medicine; Referring Provider Internal Medicine; Visit Provider Internal Medicine
DX: R01.1 Cardiac murmur, unspecified (principal)
CPT/HCPCS: 93306